=== PATIENT | male | born 1930 | race Caucasian/White ===

== ENCOUNTER 2017-01-04 16:41 | Outpatient (CLI) | payer OTHER | END 2017-01-04 20:07 | disposition home or self-care (01) | LOC: MLB 16:41 | PROVIDERS: ATTEND Legal Medicine | DX: Z00.8 Encounter for other general examination (principal) ==

== ENCOUNTER 2017-08-01 14:12 | Emergency (ER) | payer OTHER ==
[~2017-08-01] VITALS: Ht 177.8 cm; Wt 77.1 kg
[2017-08-01 14:40] VITALS: BP 114/75
[2017-08-01] MEDS ORDERED: ONDANSETRON 4 MG ODT SL PRN (14:55)
[2017-08-01] MEDS ORDERED: methylPREDNISolone SS 125 MG in WATER STERILE 2 ML IM ONE (14:55)
--- NOTE | 2017-08-01 15:00 | NUR ---
87 M BIB DAUGHTER WITH C/O 10/10 CONSTANT RIGHT SHOULDER PAIN X 2 DAYS; PT STS HX OF PAIN IN RIGHT SHOULDER, WORSE LAST NIGHT; PT DENIES ANY RECENT INJURY; LIMITED ROM TO RIGHT SHOULDER; PT DENIES ANY CP, SOB, NUMBESS, OR TINGLING; PT IS AOX4, APPEARS ANXIOUS AND RESTLESS; RR ARE EVEN AND UNLABORED; NAD. ALL NEEDS MET AT THIS TIME.
[2017-08-01] MEDS ORDERED: KETOROLAC 60 MG/2 ML VIAL IM ONE (15:30)
--- NOTE | 2017-08-01 15:45 | NUR ---
PT REQUESTING TO SPEAK TO DOCTOR; PT REQUESTING TO "BE ADMITTED AND GETTING CORTISONE SHOTS"; ER MD GALLAGHER BY BEDSIDE EXPLAINING D/C INSTRUCTIONS AND PLAN OF CARE; PT VERBALIZED UNDERSTAND AND AGREE WITH PLAN OF CARE.
[2017-08-01 15:55] VITALS: BP 122/74
--- NOTE | 2017-08-01 15:55 | NUR ---
Patient discharged with v/s stable. Written and verbal after care instructions given and explained. Patient alert, oriented and verbalized understanding of instructions. Ambulatory with steady gait. All questions addressed prior to discharge. ID band removed. Patient advised to follow up with PMD. Rx of Cipro and Tramadol given. Patient educated on indication of medication including possible reaction and side effects. Opportunity to ask questions provided and answered.
== END 2017-08-01 15:55 | disposition home or self-care (01) ==
LOC: MED 14:12
DX: M25.511 Pain in right shoulder (principal); Z88.0 Allergy status to penicillin; Z95.0 Presence of cardiac pacemaker
CPT/HCPCS: 73030; 96372; 99284; J1885; J2930; Q0092; S0119

== ENCOUNTER 2017-10-13 14:44 | Inpatient (IN) | payer OTHER ==
[~2017-10-13] VITALS: Ht 160 cm; Wt 71.2 kg
[2017-10-13 15:40] VITALS: BP 140/58
--- NOTE | 2017-10-13 16:25 | NUR ---
Pt taken to bed 3 via w/c.
[2017-10-13] MEDS ORDERED: NACL 0.9% 1,000 ML IV ONE ×2 (16:30→18:20)
[2017-10-13] MEDS ORDERED: ONDANSETRON 4 MG/2 ML VIAL IVP ONE (16:30)
--- NOTE | 2017-10-13 16:30 | NUR ---
patient brougnt in by for c/o n/v/d x 5 days. patient states " I don't have an appetite." patient states episode of vomiting x 1 this afternoon and diarrhea x 1. no observations of vomiting during assessment. patient's abdomen is soft, non-tender. bs present in all four quadrants. awaiting md evaluation. patient informed of neede urine specimen. presently at bedsidee.
--- NOTE | 2017-10-13 17:05 | NUR ---
Lab at bedside.
[2017-10-13 17:27] LABS: BASOPHILS # (AUTO) 0.1 K/uL (0.00-0.22); BASOPHILS % (AUTO) 1.5 % (0.0-2.0); EOSINOPHILS # (AUTO) 0.1 K/uL (0-0.4); EOSINOPHILS % (AUTO) 2.3 % (0.0-4.0); HEMATOCRIT 23.2 % (36-52); HEMOGLOBIN 7.5 g/dL (12.0-18.0); LYMPHOCYTES # (AUTO) 0.7 K/uL (2.0-11.5); LYMPHOCYTES % (AUTO) 14.8 % (20.5-51.1); MEAN CORPUSCULAR HEMOGLOBIN 30 pg (27-31); MEAN CORPUSCULAR HGB CONC 32 g/dL (33-37); MEAN CORPUSCULAR VOLUME 93 fL (80-94); MONOCYTES # (AUTO) 0.4 K/uL (0.8-1.0); MONOCYTES % (AUTO) 8.5 % (1.7-9.3); NEUTROPHILS # (AUTO) 3.3 K/uL (1.8-7.7); NEUTROPHILS % (AUTO) 72.9 % (42.2-75.2); PLATELET COUNT (AUTO) 175 K/uL (140-450); RED CELL DISTRIBUTION WIDTH 16.1 % (11.6-13.7); WHITE BLOOD COUNT (AUTO) 4.6 K/uL (4.8-10.8)
--- NOTE | 2017-10-13 17:30 | NUR ---
Dr. Cole in room for examination.
[2017-10-13 17:33] LABS: ALBUMIN 2.9 g/dL (3.4-5.0); AMYLASE 79 U/L (25-115); ANION GAP 19.6 (8-16); ASPARTATE AMINOTRANSFERASE 15 U/L (15-37); CARBON DIOXIDE 18.1 mmol/L (21-32); CHLORIDE 102 mmol/L (98-107); GLUCOSE 91 mg/dL (74-106); LIPASE 218 U/L (73-393); POTASSIUM 4.7 mmol/L (3.5-5.1); SODIUM SERUM 135 mmol/L (136-145); TOTAL BILIRUBIN 0.3 mg/dL (0.0-1.0)
[2017-10-13 17:35] LABS: PROTHROMBIN TIME 11.5 secs (10.8-13.4)
[2017-10-13 17:42] LABS: CREATININE 9.4 mg/dL (0.7-1.3); UREA NITROGEN, BLOOD 71 mg/dL (7-18)
[2017-10-13] MEDS ORDERED: ASPIRIN 325 MG TAB PO ONE (17:55)
--- NOTE | 2017-10-13 18:10 | NUR ---
patient out to ct via [facility]
[2017-10-13 19:18] VITALS: BP 134/57
--- NOTE | 2017-10-13 19:18 | NUR ---
ADMITTED A N 87M FROM ER. CAME BY [facility] ACCOMPANIED BY DAUGHTER. REPORT GIVEN BY ER NURSE. ON TELE MONITOR- PACED. AWAKE, ALERT AND ORIENTED X4. AMBULATORY WITH CANE AND STANDBY ASSISTANCE. HAS IVF INFUSING WELL ON THE RT AC #20. CLEAR AND PATENT. PT/FAMILY ORIENTED TO HOSPITAL ROUTINES. CALL LIGHT PLACED WITHIN EASY REACH. BED ON LOW POSITION, FREQUENT ROUNDS NEEDED. BED ALARM ON FOR PROTECTION. LT BUTTOCKS WITH REDNESS, NO DRAIN ,OPEN TO AIR. PT REFUSED TO REMOVE HIS UNDERWEAR. [employer] [place] ST[employer] . HEARING AID NOT PRESENT . DAUGHTER SAID HE DIDN'T HAVE IT AT THIS TIME. WILL FOLLOW UP WITH ADMITTING ORDERS.
--- NOTE | 2017-10-13 19:30 | NUR ---
patient was transferred to telemetry room 107a, stable upon transfer. report given to Josefina MASTERS. all belongings were accompanied upon transfer. Daughter present.
--- NOTE | 2017-10-13 21:30 | NUR ---
CALLED DR. OSMEL Fay CALLED BACK AND MADE AWARE THE NEED FOR ADMIT ORDERS. HE SAID HE IS GOING TO DO THE ORDERS.
[2017-10-13 21:53] LABS: APPEARANCE,URINE CLEAR (CLEAR); BILIRUBIN,URINE NEGATIVE (NEGATIVE); BLOOD, URINE 1+ (NEGATIVE); COLOR,URINE YELLOW (YELLOW); LEUKOCYTE ESTERASE ,URINE NEGATIVE (NEGATIVE); NITRITE, URINE NEGATIVE (NEGATIVE); UGLUCOSE NEGATIVE (NEGATIVE)
[2017-10-13] MEDS ORDERED: ACETAMINOPHEN 325 MG TAB PO PRN (22:00)
[2017-10-13] MEDS ORDERED: HYDROcodone/APAP 5/325 MG 1 TAB TAB PO PRN (22:00)
[2017-10-13] MEDS ORDERED: ONDANSETRON 4 MG/2 ML VIAL IVP PRN (22:00)
[2017-10-13] MEDS ORDERED: INSULIN LISPRO SLIDING SCALE 100 UNITS/ML VIAL SUBQ PRN (22:00)
[2017-10-13] MEDS: DEXT 5% /NACL 0.9% 1,000 ML IV SCH (22:00)
[2017-10-13] MEDS ORDERED: DEXTROSE 50% 50 ML SYR IVP PRN (22:00)
[2017-10-13] MEDS ORDERED: MORPHINE SULFATE 4 MG/ML SYR IVP PRN (22:00)
[2017-10-13] MEDS ORDERED: LORazepam 2 MG/ML VIAL IVP PRN (22:00)
[2017-10-13 22:08] LABS: HYALINE CASTS, URINE 0-10 /LPF (None Seen); RBC,URINE 0-5 (RARE) /HPF (0-5); URINE AMORPHOUS URATE 3+ /HPF (None Seen); WBC,URINE 0-5 (RARE) /HPF (0-5)
[2017-10-13] MEDS ORDERED: INFLUENZA VIRUS VACCINE QUAD 0.5 ML SYR IMVAC PRN (22:30)
--- NOTE | 2017-10-14 00:12 | NUR ---
SCD MACHINE APPLIED TO BOTH LOWER LEG ORDERED. PT MADE AWARE OF THE BENEFIT OF THE MACHINE.
[2017-10-14] MEDS: DEXT 5% /NACL 0.9% 1,000 ML IV SCH ×2 (00:40→18:17)
[2017-10-14 00:45] VITALS: BP 145/59
[2017-10-14 01:41] LABS: CREATINE KINASE MB 1.7 ng/mL (0-3.6)
--- NOTE | 2017-10-14 01:56 | NUR ---
PAGED Dena OLIVARES. FOR THE TROPONIN 0.[address] ABDOMEN /PELVIS. WILL WAIT FOR CALL BACK.
--- NOTE | 2017-10-14 02:16 | NUR ---
DR. OSMEL Fay CALLED BACK AND MADE AWARE ALSO OF THE CT ABDOMEN /PELVIS WITHOUT CONTRAST. WITH ORDER TO REPEAT CT ABD /PELVIS BUT WITH CONTRAST .
--- NOTE | 2017-10-14 02:20 | NUR ---
DR. OSMEL PINEDA CALLED BACK AND MADE AWARE OF THE TROP 0.170 .HE SAID TO CALL BUTTONHOLE MAKER HAND. SO DR. OSMEL CARBAJAL WAS PAGED . JUST CALLED BACK AND MADE AWARE OF THIS ELEVATED TROPONIN. NO ORDER MADE . HE SAID HE WILL SEE PT TODAY.
--- NOTE | 2017-10-14 03:00 | NUR ---
ABLE TO TALKED TP DIETETICS TEACHER, CAN'T DO THE CT WITH CONTRAST DUE TO ELEVATED CREATENINE
--- NOTE | 2017-10-14 03:49 | NUR ---
WILL HAVE MD AWARE ABOUT THE CT WITH CONTRAST ORDER THAT CAN'T BE DONE YET .
[2017-10-14 04:20] VITALS: BP 148/59
--- NOTE | 2017-10-14 04:30 | NUR ---
PT USED URINAL DURING THE NIGHT. VOIDED X 3. ABLE TO CLEAN THE PERINEAL AREA. WITH TINY AMOUNT OF STOOL. LT BUTTOCK WITH SMALL REDNESS , OPEN PRESSURE ULCER ,CLEANED WITH MILD SOAP AND WATER ,PAT DRY THEN COVER WITH DRESSING. WILL HAVE MD ORDER TREATMENT.
[2017-10-14] MEDS ORDERED: MILD SOAP AND WATER TP PRN (04:55)
[2017-10-14] MEDS ORDERED: HYDRAGUARD CREAM TP PRN (04:55)
[2017-10-14] MEDS: BLOOD GLUCOSE MONITORING 1 DEV DEV FS SCH ×4 (05:55→20:23)
--- NOTE | 2017-10-14 06:08 | NUR ---
FOLLOW UP US KIDNEY FROM CT DEPT. [place] SAID IT WILL BE DONE BY [phone] .
--- NOTE | 2017-10-14 06:09 | NUR ---
BLOOD SUGAR WAS CHECKED PER ORDER, RESULT 83, NO INSULIN NEEDED.
--- NOTE | 2017-10-14 06:45 | NUR ---
TALKED TO JALEN THOMASONNOKAYLA FOR CT ABDOMEN /PELVIS WITH CONTRAST. PT SIGNED CONSENT. WILL KEEP NPO .
--- NOTE | 2017-10-14 07:25 | NUR ---
ENDORSED PT IN STABLE CONDITION TO AM NURSE.
--- NOTE | 2017-10-14 07:26 | NUR ---
RECEIVED REPORT FROM BELLY DUMP DRIVER RN. PATIENT IS AAOX4, NO SIGNS AND SYMPTOMS OF ACUTE DISTRESS NOTED AT THIS TIME. PATIENT HAS IV RIGHT AC 20G, ON SALINE LOCK, ALSO HAS IV TO RIGHT FOREARM 20G INFUSING D5NS AT 100ML/HR. SITES ARE CLEAN, DRY, PATENT AND INTACT. DISCUSSED PLAN OF CARE WITH PATIENT AND HE VERBALIZED UNDERSTANDING. BED IN LOWEST POSITION, SIDE RAILS UP X2, ASSISTIVE DEVICE CANE AT THE FOOT OF THE BED, CALL LIGHT WITHIN REACH. WILL CONTINUE TO MONITOR.
[2017-10-14 07:31] LABS: BASOPHILS # (AUTO) 0.1 K/uL (0.00-0.22); BASOPHILS % (AUTO) 3.4 % (0.0-2.0); EOSINOPHILS # (AUTO) 0.2 K/uL (0-0.4); EOSINOPHILS % (AUTO) 4.9 % (0.0-4.0); HEMATOCRIT 21.1 % (36-52); LYMPHOCYTES # (AUTO) 1.1 K/uL (2.0-11.5); MEAN CORPUSCULAR HEMOGLOBIN 31 pg (27-31); MEAN CORPUSCULAR HGB CONC 33 g/dL (33-37); MEAN CORPUSCULAR VOLUME 92 fL (80-94); MONOCYTES # (AUTO) 0.5 K/uL (0.8-1.0); MONOCYTES % (AUTO) 10.6 % (1.7-9.3); NEUTROPHILS # (AUTO) 2.5 K/uL (1.8-7.7); NEUTROPHILS % (AUTO) 56.1 % (42.2-75.2); PLATELET COUNT (AUTO) 145 K/uL (140-450); RED BLOOD CELL COUNT(AUTO) 2.29 MIL/uL (4.20-6.10); RED CELL DISTRIBUTION WIDTH 15.7 % (11.6-13.7); WHITE BLOOD COUNT (AUTO) 4.4 K/uL (4.8-10.8)
[2017-10-14 08:00] VITALS: BP 147/54
[2017-10-14 08:45] LABS: MAGNESIUM 1.8 mg/dL (1.8-2.4); PHOSPHORUS 5.5 mg/dL (2.5-4.9)
[2017-10-14 08:49] LABS: ANION GAP 16.7 (8-16); CARBON DIOXIDE 18.8 mmol/L (21-32); CHLORIDE 106 mmol/L (98-107); GLUCOSE 82 mg/dL (74-106); POTASSIUM 4.5 mmol/L (3.5-5.1); SODIUM SERUM 137 mmol/L (136-145)
--- NOTE | 2017-10-14 09:10 | NUR ---
COLLECTED FECAL OCCULT AND SENT IT TO THE LAB.
--- NOTE | 2017-10-14 09:16 | NUR ---
PATIENT HAS BEEN SCREENED AND CATEGORIZED HIGH NUTRITION RISK. PATIENT WILL BE SEEN WITHIN 1-2 DAYS OF ADMISSION. 10/13/18-10/14/[address]
[2017-10-14 09:34] LABS: CREATININE 8.7 mg/dL (0.7-1.3); UREA NITROGEN, BLOOD 69 mg/dL (7-18)
[2017-10-14 12:00] VITALS: BP 142/64
--- NOTE | 2017-10-14 12:00 | NUR ---
DR COBB ORDERED LAZO CATHETER. SON REFUSED, STATING THAT HIS FATHER HAD YANKED OUT HIS OWN LAZO CATHETER 2 MONTHS AGO WHILE HOSPITALIZED AND THAT HE WAS BLEEDING FROM THE [place] AND IT CAUSED AN INFECTION. PATIENT HAS HX OF BPH WELL.
--- NOTE | 2017-10-14 12:05 | NUR ---
BEGAN BLOOD TRANSFUSION. EDUCATED PATIENT AND SON ABOUT SIGNS AND SYMPTOMS TO BE AWARE OF WHILE RECEIVING TRANSFUSION. BOTH VERBALIZED UNDERSTANDING.
--- NOTE | 2017-10-14 12:30 | NUR ---
PATIENTS BLOOD SUGAR 73. GAVE PATIENT SOME CRANBERRY JUICE. WILL RECHECK BLOOD SUGAR.
--- NOTE | 2017-10-14 13:00 | NUR ---
RECHECKED PATIENT BLOOD SUGAR AND IT WAS 86. HAS NO SIGNS AND SYMPTOMS OF ACUTE DISTRESS NOTED AT THIS TIME. WILL CONTINUE TO MONITOR.
[2017-10-14] MEDS: HYDRAGUARD CREAM TP SCH (13:36)
[2017-10-14] MEDS: MILD SOAP AND WATER TP SCH (13:37)
--- NOTE | 2017-10-14 14:49 | NUR ---
CM NOTE INITIAL REVIEW FOR CRITERIA DONE
--- NOTE | 2017-10-14 15:51 | NUR ---
10/14/2017 RD INITIAL ASSESSMENT COMPLETED PLEASE REFER TO NUTRITION ASSESSMENT UNDER CARE ACTIVITY FOR ESTIMATED NUTRITIONAL NEEDS. CONTINUE ANTIHYPERGLYCEMIC MEDS AND CARDIAC/60 GM CCHO DIET FOR GLUCOSE CONTROL IF PT EXPECTED TO BE NPO >5 DAYS, MAY CONSIDER PARENTERAL NUTRITION SUPPORT RD TO FOLLOW-UP IN 2-3 DAYS PATIENT IS HIGH RISK. ANGELA HOUSTON, RD
[2017-10-14 15:55] LABS: CREATINE KINASE MB 1.7 ng/mL (0-3.6)
[2017-10-14 16:00] VITALS: BP 141/58
[2017-10-14 18:36] LABS: ANION GAP 15.8 (8-16); CARBON DIOXIDE 17.5 mmol/L (21-32); CHLORIDE 108 mmol/L (98-107); GLUCOSE 99 mg/dL (74-106); POTASSIUM 4.3 mmol/L (3.5-5.1); SODIUM SERUM 137 mmol/L (136-145)
[2017-10-14 18:38] LABS: CREATININE 8.5 mg/dL (0.7-1.3); UREA NITROGEN, BLOOD 70 mg/dL (7-18)
--- NOTE | 2017-10-14 19:29 | NUR ---
ENDORSED PATIENT TO VENDING ROUTE DRIVER RN FOR CONTINUITY OF CARE. PATIENT IN STABLE CONDITION.
--- NOTE | 2017-10-14 19:30 | NUR ---
RECEIVED HANDOFF REPORT FROM AM RN. PATIENT A&OX4. PATIENT RESTING IN BED WITH DAUGHTER AT BEDSIDE. PATIENT DENIES PAIN. PATIENT DENIES CP, SOB. NO SIGNS OF ACUTE DISTRESS NOTED. IV SITE PATENT AND INTACT. SAFETY MEASURES ENSURED. CALL LIGHT WITHIN REACH.
[2017-10-14 20:00] VITALS: BP 148/59
[2017-10-14] MEDS ORDERED: SODIUM BICARBONATE 650 MG TAB PO SCH (21:00)
[2017-10-14] MEDS ORDERED: NACL 0.45% 1,000 ML IV SCH (23:50)
[2017-10-14] MEDS ORDERED: SODIUM BICARBONATE 8.4% PFS 50 MEQ/50 ML SYR IVP ONE (23:50)
[2017-10-15] VITALS: BP 146/49
[2017-10-15] MEDS: SODIUM BICARBONATE 8.4% 75 MEQ in NACL 0.45% 1,000 ML IV SCH ×2 (00:40→14:22)
[2017-10-15] MEDS: MILD SOAP AND WATER TP SCH ×2 (00:41→14:44)
[2017-10-15] MEDS: HYDRAGUARD CREAM TP SCH ×2 (00:41→14:44)
[2017-10-15 04:00] VITALS: BP 146/59
[2017-10-15] MEDS: BLOOD GLUCOSE MONITORING 1 DEV DEV FS SCH ×4 (06:49→21:00)
[2017-10-15 07:24] LABS: BASOPHILS # (AUTO) 0.1 K/uL (0.00-0.22); BASOPHILS % (AUTO) 1.4 % (0.0-2.0); EOSINOPHILS # (AUTO) 0.3 K/uL (0-0.4); EOSINOPHILS % (AUTO) 5.9 % (0.0-4.0); HEMATOCRIT 23.4 % (36-52); HEMOGLOBIN 7.7 g/dL (12.0-18.0); LYMPHOCYTES # (AUTO) 1.6 K/uL (2.0-11.5); LYMPHOCYTES % (AUTO) 33.2 % (20.5-51.1); MEAN CORPUSCULAR HEMOGLOBIN 30 pg (27-31); MEAN CORPUSCULAR HGB CONC 33 g/dL (33-37); MEAN CORPUSCULAR VOLUME 92 fL (80-94); MONOCYTES # (AUTO) 0.5 K/uL (0.8-1.0); NEUTROPHILS # (AUTO) 2.4 K/uL (1.8-7.7); NEUTROPHILS % (AUTO) 49.5 % (42.2-75.2); PLATELET COUNT (AUTO) 137 K/uL (140-450); RED BLOOD CELL COUNT(AUTO) 2.54 MIL/uL (4.20-6.10); WHITE BLOOD COUNT (AUTO) 4.9 K/uL (4.8-10.8)
--- NOTE | 2017-10-15 07:37 | NUR ---
ENDORSED PLAN OF CARE TO AM RN. PATIENT IN STABLE CONDITION.
--- NOTE | 2017-10-15 07:38 | NUR ---
REPORT ENDORSED FROM NURSES AIDE NURSE AT BEDSIDE FOR CONTINUITY OF CARE. PT IN BED WITH EYES CLOSED . IV SITE TO RFA 20G. RESP EVEN AND UNLABORED. NO ACUTE DISTRESS NOTED. CALL LIGHT WITHIN REACH. WILL CONT TO MONITOR PT.
--- NOTE | 2017-10-15 07:45 | NUR ---
DR BOLIVAR IN TO SEE PT THIS AM.
[2017-10-15 07:53] LABS: ANION GAP 18.3 (8-16); CHLORIDE 109 mmol/L (98-107); GLUCOSE 78 mg/dL (74-106); POTASSIUM 4.3 mmol/L (3.5-5.1); SODIUM SERUM 140 mmol/L (136-145)
[2017-10-15 07:56] LABS: MAGNESIUM 1.8 mg/dL (1.8-2.4); PHOSPHORUS 5.4 mg/dL (2.5-4.9)
[2017-10-15 07:58] LABS: CREATININE 8.5 mg/dL (0.7-1.3); UREA NITROGEN, BLOOD 66 mg/dL (7-18)
[2017-10-15 08:00] VITALS: BP 142/50
--- NOTE | 2017-10-15 08:02 | NUR ---
CRITICAL VALUE REPORTED OF BUN 66 AND CREATININE OF 8.5. IT WAS PREVIOUSLY BUN 70 AND CREATININE 8.5.
--- NOTE | 2017-10-15 09:45 | NUR ---
PATIENT IN BED WITH EYES CLOSED. RESP EVEN AND UNLABORED. NO ACUTE DISTRESS NOTED. CALL LIGHT WITHIN REACH. WILL CONT TO MONITOR PT.
--- NOTE | 2017-10-15 11:30 | NUR ---
PATIENT SITTING IN BED COMFORTABLY. PATIENT'S FAMILY MEMBERS AT BEDSIDE. ANSWERED ALL OF SON'S QUESTIONS REGARDING PATIENT'S UPDATE ON STATUS. SAFETY MEASURES IN PLACE, CALL LIGHT WITHIN REACH. WILL CONTINUE TO MONITOR.
--- NOTE | 2017-10-15 11:45 | NUR ---
PATIENT ASSISTED TO RESTROOM. PT HAD BM . AMBULATED WITH CANE. STEADY GAIT WITH AMBULATION DEVICE. FAMILY AT BEDSIDE. BLOOD GLUCOSE CHECKED. VS COLLECTED. PATIENT ALERT AND ABLE TO VERBALIZE NEEDS. NO ACUTE DISTRESS NOTED. CALL LIGHT WITHIN REACH. BED IN LOW POSITION. WILL CONT TO MONITOR PT.
[2017-10-15 12:00] VITALS: BP 152/52
--- NOTE | 2017-10-15 12:09 | NUR ---
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 INITIATED MRSA PROTOCOL. PATIENT ON CONTACT ISOLATION. WILL CONT TO MONITOR PT.
[2017-10-15] MEDS: SODIUM BICARBONATE 650 MG TAB PO SCH ×2 (12:18→17:24)
--- NOTE | 2017-10-15 13:45 | NUR ---
PT IN BED WITH EYES CLOSED. EASILY AWOKEN. RESP EVEN AND UNLABORED. NO ACUTE DISTRESS NOTED.BED IN LOW POSITION.CALL LIGHT WITHIN REACH. WILL CONT TO MONITOR PT.
[2017-10-15] MEDS: CHLORHEXADINE GLUC 2% CLOTH TP SCH (14:00)
[2017-10-15] MEDS: MUPIROCIN 2% OINT 22 GM TUBE TP SCH (14:00)
--- NOTE | 2017-10-15 15:45 | NUR ---
PATIENT RESTING IN BED WITH EYES CLOSED. NO ACUTE DISTRESS. EASILY WOKEN. NO C/O PAIN OR DISCOMFORT.CALL LIGHT WITHIN REACH. WILL CONT TO MONITOR PT.
--- NOTE | 2017-10-15 17:45 | NUR ---
PATIENT ASSISTED TO RESTROOM ATTEMPTED TO HAVE BM. NO BM. DC RFA IV D/T INFILTRATION. ROTATED IVF TO RAC. PATIENT TOLERATED WELL. NO ACUTE DISTRESS NOTED. CALL LIGHT WITHIN REACH. WILL CONT TO MONITOR PT.
[2017-10-15 18:00] VITALS: BP 132/40
--- NOTE | 2017-10-15 19:21 | NUR ---
ENDORSED REPORT TO BOTTOM STEEP TENDER NURSE AT BEDSIDE FOR CONTINUITY OF CARE.
--- NOTE | 2017-10-15 19:22 | NUR ---
RECEIVED HANDOFF REPORT FROM AM RN. PATIENT A&OX4. PATIENT DENIES PAIN. IV SITE PATENT AND INTACT. DAUGHTER AT BEDSIDE. NO SIGNS OR SYMPTOMS OF ACUTE DISTRESS NOTED. SAFETY MEASURES ENSURED. CALL LIGHT WITHIN REACH. WILL CONTINUE TO MONITOR.
[2017-10-15 20:00] VITALS: BP 153/57
[2017-10-16] VITALS: BP 138/57
[2017-10-16] MEDS: MILD SOAP AND WATER TP SCH ×2 (01:07→13:35)
[2017-10-16] MEDS: HYDRAGUARD CREAM TP SCH ×2 (01:07→13:35)
[2017-10-16 04:00] VITALS: BP 141/55
[2017-10-16] MEDS: SODIUM BICARBONATE 8.4% 75 MEQ in NACL 0.45% 1,000 ML IV SCH ×2 (04:42→19:11)
[2017-10-16] MEDS: BLOOD GLUCOSE MONITORING 1 DEV DEV FS SCH ×4 (06:24→20:23)
[2017-10-16 07:09] LABS: BASOPHILS # (AUTO) 0.2 K/uL (0.00-0.22); EOSINOPHILS # (AUTO) 0.4 K/uL (0-0.4); EOSINOPHILS % (AUTO) 6.8 % (0.0-4.0); HEMATOCRIT 26.5 % (36-52); HEMOGLOBIN 8.6 g/dL (12.0-18.0); LYMPHOCYTES # (AUTO) 1.6 K/uL (2.0-11.5); LYMPHOCYTES % (AUTO) 30.3 % (20.5-51.1); MEAN CORPUSCULAR HEMOGLOBIN 30 pg (27-31); MEAN CORPUSCULAR HGB CONC 32 g/dL (33-37); MEAN CORPUSCULAR VOLUME 92 fL (80-94); MONOCYTES # (AUTO) 0.4 K/uL (0.8-1.0); MONOCYTES % (AUTO) 8.2 % (1.7-9.3); NEUTROPHILS # (AUTO) 2.8 K/uL (1.8-7.7); NEUTROPHILS % (AUTO) 51.7 % (42.2-75.2); PLATELET COUNT (AUTO) 142 K/uL (140-450); RED BLOOD CELL COUNT(AUTO) 2.86 MIL/uL (4.20-6.10); RED CELL DISTRIBUTION WIDTH 15.3 % (11.6-13.7); WHITE BLOOD COUNT (AUTO) 5.4 K/uL (4.8-10.8)
[2017-10-16 07:25] LABS: MAGNESIUM 1.7 mg/dL (1.8-2.4); PHOSPHORUS 5.6 mg/dL (2.5-4.9)
[2017-10-16 07:27] LABS: ANION GAP 16.5 (8-16); CARBON DIOXIDE 19.4 mmol/L (21-32); CHLORIDE 107 mmol/L (98-107); GLUCOSE 82 mg/dL (74-106); POTASSIUM 3.9 mmol/L (3.5-5.1); SODIUM SERUM 139 mmol/L (136-145)
--- NOTE | 2017-10-16 07:37 | NUR ---
ENDORSED PLAN OF CARE TO AM RN. PATIENT IN STABLE CONDITION.
--- NOTE | 2017-10-16 07:38 | NUR ---
RECEIVED REPORT FROM MAINTENANCE SPECIALIST NURSE. PATIENT LYING IN BED SLEEPING, AROUSABLE BY VOICE. NO DISTRESS NOTED. RESPIRATIONS EVEN, UNLABORED, ON ROOM AIR. DENIES ANY PAIN AT THIS TIME. PATIENT VERBALIZES WANTING TO SWITCH NURSES, DOES NOT WANT ME HIS NURSE. WILL NOTIFY FORENSIC ECONOMIST.
[2017-10-16 08:00] VITALS: BP 148/55
--- NOTE | 2017-10-16 08:00 | NUR ---
ENDORSED PATIENT TO GUERRERO CASAREZ FOR CONTINUITY OF CARE. PATIENT IN STABLE CONDITION.
--- NOTE | 2017-10-16 08:01 | NUR ---
RECEIVED REPORT FROM GABBIE AT BEDSIDE FOR CONTINUITY OF CARE. PATIENT ALERT AND ABLE TO MAKE NEEDS KNOWN. NO ACUTE DISTRESS NOTED. NO C/O PAIN OR DISCOMFORT. RESP EVEN AND UNLABORED. PATIENT USES URINAL AT BEDSIDE. PT [place] SPEAK[place]. PT WITH RAC IV 20G WITH NS WITH SODIUM BICARB 75MEG RUNNING AT 75ML/HR. TOLERATING WELL. PT FALL RISK WITH STEADY GAIT WITH CANE. CALL LIGHT WITHIN REACH. WILL CONT TO MONITOR PT.
[2017-10-16 08:07] LABS: CREATININE 8.5 mg/dL (0.7-1.3)
[2017-10-16] MEDS: SODIUM BICARBONATE 650 MG TAB PO SCH ×3 (08:42→17:10)
--- NOTE | 2017-10-16 08:42 | NUR ---
ADMINISTERED SCHEDULED MORNING MEDICATION PER MD ORDER. PATIENT TOLERATED WELL. PT ALERT AND ABLE TO VERBALIZE NEEDS. NO ACUTE DISTRESS NOTED. CALL LIGHT WITHIN REACH. SON AT BEDSIDE. CALL LIGHT WITHIN REACH.CONTACT PRECAUTIONS. WILL CONT TO MONITOR PT.
[2017-10-16] MEDS ORDERED: MAG SULF 2000 MG/WATER PREMIX 50 ML IV SCH (09:00)
--- NOTE | 2017-10-16 09:42 | NUR ---
PT WITH NEW ORDER FOR MAG RIDER 2GM. ADMINISTERED VIA IVPB TO RAC 20G. PATIENT IN BED AWAKE AND ALERT . ABLE TO MAKE NEEDS KNOWN. USED URINAL AND BLADDER SCANNED. 27ML PVR. CALL LIGHT WITHIN REACH. WILL CONT TO MONITOR PT. PT CONT ON CONTACT ISOLATION.
--- NOTE | 2017-10-16 11:46 | NUR ---
DR CLAROS (NEPHRO) IN TO SEE PATIENT.
[2017-10-16 12:00] VITALS: BP 157/59
[2017-10-16] MEDS: CALCIUM ACETATE 667 MG TAB PO SCH ×2 (12:10→17:10)
--- NOTE | 2017-10-16 12:30 | NUR ---
DR BOLIVAR IN TO SEE PATIENT. PT ALERT AND ABLE TO VERBALIZE NEEDS. NO ACUTE DISTRESS NOTED. NO C/O PAIN. WILL CONT TO MONITOR.
[2017-10-16 13:32] LABS: PHOSPHORUS 5.8 mg/dL (2.5-4.9)
[2017-10-16] MEDS: CHLORHEXADINE GLUC 2% CLOTH TP SCH (13:35)
[2017-10-16] MEDS: MUPIROCIN 2% OINT 22 GM TUBE TP SCH (13:35)
[2017-10-16 13:42] LABS: UREA NITROGEN, BLOOD 66 mg/dL (7-18)
--- NOTE | 2017-10-16 14:00 | NUR ---
DR HOFFMAN IN TO SEE PATIENT.
--- NOTE | 2017-10-16 14:16 | NUR ---
PT ALERT AND ABLE TO MAKE NEEDS KNOWN. NO ACUTE DISTRESS NOTED. NO C/O PAIN OR DISCOMFORT. PATIENT USES URINAL AT BEDSIDE. PT WITH RAC IV 20G WITH NS WITH SODIUM BICARB 75MEG RUNNING AT 75ML/HR. TOLERATING WELL. PT FALL RISK. CONT ON CONTACT PRECAUTIONS. CALL LIGHT WITHIN REACH. WILL CONT TO MONITOR PT.
--- NOTE | 2017-10-16 14:30 | NUR ---
NOTIFIED DR SHAD VALERO THAT DR HOFFMAN WILL CONTINUE TO SEE PATIENT PER PATIENT AND FAMILY REQUEST
[2017-10-16 16:00] VITALS: BP 162/63
--- NOTE | 2017-10-16 16:30 | NUR ---
PATIENT ALERT AND ABLE TO VERBALIZE NEEDS. NO ACUTE DISTRESS NOTED. NO C/O PAIN OR DISCOMFORT. ASSISTED PT TO BATHROOM BECAUSE HE FELT THE URGE TO HAVE A BM. BUT WAS UNSUCCESSFUL. HAT FOR SPECIMEN COLLECTION IN BATHROOM TOILET. PATIENT CONT ON CONTACT ISOLATION ORDERED. WILL CONT TO MONITOR PT.
--- NOTE | 2017-10-16 18:20 | NUR ---
IV SITE CHANGED FROM MEDIAL RAC. TO LATERAL RAC. PT TOLERATED WELL. 20G PATENT AND INTACT.CONTINUED IVF ORDERED. PATIENT ALERT AND ABLE TO VERBALIZE NEEDS. NO ACUTE DISTRESS . WILL CONT TO MONITOR PT.
--- NOTE | 2017-10-16 19:25 | NUR ---
ENDORSED REPORT TO BEHAVIORAL HEALTH COUNSELOR NURSE AT BEDSIDE FOR CONTINUITY OF CARE.
--- NOTE | 2017-10-16 19:26 | NUR ---
PATIENT REPORT RECEIVED FROM MORNING NURSE AT BEDSIDE. PATIENT IS ASLEEP IN BED, BUT EASY TO AROUSE. NO SIGNS AND SYMPTOMS OF DISTRESS NOTED. NO COMPLAINTS OF PAIN AT THIS TIME. IV SITE NOTED ON RIGHT AC, IVF INFUSING WELL. BED IN LOWEST POSITION, SIDE RAILS UP AND CALL LIGHT WITHIN REACH. WILL CONTINUE TO MONITOR.
[2017-10-16 20:00] VITALS: BP 159/63
[2017-10-16] MEDS: DOCUSATE SODIUM 100 MG GELCAP PO SCH (20:56)
[2017-10-16] MEDS: hydrALAZINE 25 MG TAB PO SCH (20:58)
--- NOTE | 2017-10-16 21:30 | NUR ---
MEDICATION EDUCATION GIVEN. PATIENT VERBALIZED UNDERSTANDING. MEDICATION GIVEN ORDERED. WILL CONTINUE TO MONITOR.
[2017-10-17] VITALS: BP 148/70
--- NOTE | 2017-10-17 | NUR ---
CHECKED ON PATIENT. PATIENT IS ASLEEP. NO SIGNS AND SYMPTOMS OF DISTRESS NOTED. BREATHING EVEN AND UNLABORED. WILL CONTINUE TO MONITOR.
[2017-10-17] MEDS: HYDRAGUARD CREAM TP SCH ×2 (01:00→13:13)
[2017-10-17] MEDS: MILD SOAP AND WATER TP SCH ×2 (01:18→13:13)
--- NOTE | 2017-10-17 02:00 | NUR ---
ASSISTED PATIENT TO AMBULATE TO RESTROOM USING HIS CANE. PATIENT HAD A BOWEL MOVEMENT. SAMPLE TAKEN. PERICARE DONE. ASSISTED PATIENT BACK TO BED. NO SIGNS AND SYMPTOMS OF DISTRESS NOTED. WILL CONTINUE TO MONITOR.
[2017-10-17 04:00] VITALS: BP 165/69
--- NOTE | 2017-10-17 04:00 | NUR ---
CHECKED ON PATIENT. PATIENT IS ASLEEP. NO SIGNS AND SYMPTOMS OF DISTRESS NOTED. BREATHING EVEN AND UNLABORED. WILL CONTINUE TO MONITOR.
[2017-10-17] MEDS: BLOOD GLUCOSE MONITORING 1 DEV DEV FS SCH ×4 (06:43→20:11)
[2017-10-17 07:08] LABS: BASOPHILS % (AUTO) 0.7 % (0.0-2.0); EOSINOPHILS # (AUTO) 0.4 K/uL (0-0.4); EOSINOPHILS % (AUTO) 6.9 % (0.0-4.0); HEMATOCRIT 25.8 % (36-52); HEMOGLOBIN 8.3 g/dL (12.0-18.0); LYMPHOCYTES # (AUTO) 1.8 K/uL (2.0-11.5); LYMPHOCYTES % (AUTO) 31.4 % (20.5-51.1); MEAN CORPUSCULAR HEMOGLOBIN 30 pg (27-31); MEAN CORPUSCULAR HGB CONC 32 g/dL (33-37); MEAN CORPUSCULAR VOLUME 92 fL (80-94); MONOCYTES # (AUTO) 0.3 K/uL (0.8-1.0); MONOCYTES % (AUTO) 4.9 % (1.7-9.3); NEUTROPHILS # (AUTO) 3.1 K/uL (1.8-7.7); NEUTROPHILS % (AUTO) 56.1 % (42.2-75.2); PLATELET COUNT (AUTO) 146 K/uL (140-450); RED BLOOD CELL COUNT(AUTO) 2.81 MIL/uL (4.20-6.10); RED CELL DISTRIBUTION WIDTH 15.6 % (11.6-13.7); WHITE BLOOD COUNT (AUTO) 5.6 K/uL (4.8-10.8)
[2017-10-17 07:16] LABS: ANION GAP 15.6 (8-16); CARBON DIOXIDE 22.8 mmol/L (21-32); CHLORIDE 105 mmol/L (98-107); GLUCOSE 85 mg/dL (74-106); POTASSIUM 4.4 mmol/L (3.5-5.1); SODIUM SERUM 139 mmol/L (136-145); UREA NITROGEN, BLOOD 60 mg/dL (7-18)
[2017-10-17 07:18] LABS: PHOSPHORUS 5.6 mg/dL (2.5-4.9)
--- NOTE | 2017-10-17 07:30 | NUR ---
RECEIVED PT AAOX3-4 WITH PERIODS OF FORGETFULNESS. NO SOB NOTED. NO C/O PAIN AT THIS TIME. IV TO RT AC PATENT AND INTACT, CHEST DIMINISHED AIR ENTRY TO THE BASES. ABDOMEN SOFT, BOWEL SOUNDS PRESENT. INSTRUCTED PT TO CALL FOR ASSISTANCE, CALL LIGHT WITHIN REACH, PT VERBALIZED UNDERSTANDING.
--- NOTE | 2017-10-17 07:30 | NUR ---
PATIENT REPORT GIVEN TO MORNING NURSE AT BEDSIDE. PATIENT IS IN STABLE CONDITION.
[2017-10-17 07:41] LABS: CREATININE 8.1 mg/dL (0.7-1.3)
[2017-10-17 08:00] VITALS: BP 118/61
[2017-10-17] MEDS: ALLOPURINOL 100 MG TAB PO SCH (09:00)
[2017-10-17] MEDS ORDERED: PSYLLIUM 12.2 GM/PKT PO SCH (09:00)
--- NOTE | 2017-10-17 09:00 | NUR ---
PT'S RECORDS FROM PSYCHIATRIC (FROM PREVIOUS HOSPITALIZATION) CAME THROUGH FAX, PLACED IN PT'S CHART. Soraya OLIVARES. IN TO SEE PT AND NOTIFIED THAT RECORDS ARE IN.
[2017-10-17] MEDS: TAMSULOSIN 0.4 MG CAP PO SCH (09:16)
[2017-10-17] MEDS: SODIUM BICARBONATE 650 MG TAB PO SCH ×3 (09:16→17:35)
[2017-10-17] MEDS: hydrALAZINE 25 MG TAB PO SCH ×2 (09:17→20:10)
[2017-10-17] MEDS: METOPROLOL SUCCINATE 50 MG TABER PO SCH (09:17)
[2017-10-17] MEDS: CALCIUM ACETATE 667 MG TAB PO SCH ×3 (09:17→17:35)
--- NOTE | 2017-10-17 10:56 | NUR ---
WOUND CARE EVALUATION NOTE: REASON FOR EVALUATION: PRESSURE ULCER LEFT BUTTOCK SKIN ASSESSMENT DONE ON THIS 87 Y/O MALE PATIENT FROM HOME TO [facility], WITH INITIAL DIAGNOSIS OF NAUSEA AND VOMITING. PAST MEDICAL HISTORY INCLUDE DIABETES, HTN,CAD, CKD AND HYPOTHYRODISM. ALL ABOVE INFORMATION WAS OBTAINED FROM THE ADMISSION H&P, PT AND SON. LABS ARE WBC 5.6, H/H 8.3/25.8, GLUCOSE 85 AND ALBUMIN 2.9. PATIENT IS AWAKE, ONLY WANTS THE BUTTOCKS AN D SACRALCOCCYX BEING ASSESS. SON AT BED SIDE ANDR REQUESTED NOT TO REMOVE THE SOCKS. SON EXPLAINED THE BUTTOCKS WOUND HAPPENED BECAUSE PT SAT IN FROMT OF COMPUTER TOO LONG. INITIAL PLAN OF CARE AND PRESSURE PREVENTIVE MEASURES DISCUSSED WITH PATIENT AND SON, ABLE TO VERBALIZE UNDERSTANDING. PRIMARY RN NOTIFY PLAN OF CARE INTEGUMENTARY: LEFT ISCHIUM PU ST II - 0.2X0.1X0.1CM 100% PALE RED. PW PINK. AREA DRY AND CLEAN RECOMMENDATIONS: -LEFT ISCHIUM PU CLEANSE WITH NS, PAT DRY, APPLY OPTIFORM AND COVER WITH COMPOSITE DRESSING CHANGE QOD AND PRN IF SOILING -KEEP SKIN DRY AND CLEAN AT ALL TIME -TURN AND REPOSITION PATIENT Q2H TO OFFLOAD SACRALCOCCYX AND BUTTOCKS, WITH THE EXCEPTION DURING MEALTIMES. -ASSESS AND MONITOR SKIN CONDITION DURING POSITION CHANGE, PLEASE PAY PARTICULAR ATTENTION TO LEFT ISCHIUM -OFFLOAD BILATERAL HEELS BY PLACING PILLOWS UNDER CALVES AT ALL TIMES, UNLESS OTHERWISE CONTRAINDICATED -KEEP SKIN CLEAN AND DRY AT ALL TIMES. -PRESSURE REDISTRIBUTION SURFACE THERAPY. -DECEMBER DISCHARGE WITH OPTIFORM AND COMPOSITE DRESSING SUPPLIES X 1 WEEK -SON AND PT WAS INSTRUCTED TO OBTAIN A GEL CUSHION AT HOME WHILE SITTING IN CHAIR WITH WEIGHT SHIFTING Q2H RECOMMENDATIONS DISCUSSED WITH PRIMARY RN WILL FOLLOW UP PATIENT Q7 DAYS AND PRN. PLEASE CONTACT [facility] FOR ANY CONCERNS, QUESTIONS AND CHANGES IN WOUND CONDITION.
[2017-10-17] MEDS ORDERED: FOAM DRESSING TP PRN (11:25)
[2017-10-17 12:00] VITALS: BP 103/55
[2017-10-17] MEDS: MUPIROCIN 2% OINT 22 GM TUBE TP SCH (13:13)
[2017-10-17] MEDS: SODIUM BICARBONATE 8.4% 75 MEQ in NACL 0.45% 1,000 ML IV SCH ×2 (13:13→23:42)
--- NOTE | 2017-10-17 13:41 | NUR ---
CM NOTE CONCURRENT REVIEW FOR CRITERIA DONE
[2017-10-17] MEDS: CHLORHEXADINE GLUC 2% CLOTH TP SCH (14:04)
--- NOTE | 2017-10-17 15:02 | NUR ---
10/17/17 RD FOLLOW UP COMPLETED. PLEASE REFER TO NUTRITION ASSESSMENT UNDER CARE ACTIVITY FOR ESTIMATED NUTRITIONAL NEEDS. CONTINUE ANTIHYPERGLYCEMIC MEDS AND CARDIAC/60 GM CCHO DIET FOR GLUCOSE CONTROL PT WILL RECEIVE DIABETIC HEALTH SHAKE TID FOR ADDITIONAL KCAL-PRO INTAKE. RD TO FOLLOW-UP IN 2-3 DAYS PATIENT IS HIGH RISK. ANGELA HOUSTON, RD
[2017-10-17] MEDS ORDERED: diphenhydrAMINE 50 MG/ML VIAL ONE (15:23)
[2017-10-17 15:45] VITALS: BP 160/60
--- NOTE | 2017-10-17 15:45 | NUR ---
PT WHEELED TO GI LAB BY TAMMI CABRERA IN STABLE CONDITION. EGD CONSENT SIGNED BY DAUGHTER KYLER EARLIER EXPLAINED BY DR. Lashon HERMAN, PT AND DAUGHTER VERBALIZED UNDERSTANDING.
--- NOTE | 2017-10-17 15:55 | NUR ---
DR. HOFFMAN HERE TO SEE MD SANAZ NOTIFIED THAT PT IS IN GI LAB FOR EGD.
[2017-10-17] MEDS: fentaNYL 0.05 MG/ML VIAL ONE ×2 (15:56→15:59)
[2017-10-17] MEDS: MIDAZOLAM 2 MG/2 ML VIAL ONE ×2 (15:56→16:01)
--- NOTE | 2017-10-17 16:20 | NUR ---
PT BACK FROM EGD IN STABLE CONDITION. AAO. NO SOB NOTED. NO COMPLAINTS MADE AT THIS TIME.
[2017-10-17] MEDS ORDERED: PANTOPRAZOLE 40 MG INJ VIAL IVP SCH (17:00)
--- NOTE | 2017-10-17 18:49 | NUR ---
PT AWAKE, TALKING TO FAMILY AT THE BEDSIDE. NO SOB NOTED. NO COMPLAINTS MADE AT THIS TIME. WILL ENDORSE TO NEXT SHIFT NURSE FOR CONTINUITY OF CARE.
--- NOTE | 2017-10-17 19:15 | NUR ---
RECEIVED HANDOFF REPORT FROM AM RN. PATIENT A&OX4. PATIENT DENIES PAIN. IV SITE PATENT AND INTACT. PATIENT RESTING COMFORTABLY IN BED. NO SIGNS OR SYMPTOMS OF ACUTE DISTRESS NOTED. SAFETY MEASURES ENSURED. CALL LIGHT WITHIN REACH. WILL CONTINUE TO MONITOR.
[2017-10-17 20:00] VITALS: BP 149/59
[2017-10-17] MEDS: SENNA 8.6 MG TAB PO SCH (20:09)
[2017-10-17] MEDS: DOCUSATE SODIUM 100 MG GELCAP PO SCH (20:09)
[2017-10-18] VITALS: BP 152/60
[2017-10-18] MEDS: MILD SOAP AND WATER TP SCH ×2 (01:15→13:02)
[2017-10-18] MEDS: HYDRAGUARD CREAM TP SCH ×2 (01:15→13:02)
--- NOTE | 2017-10-18 01:15 | NUR ---
PATIENT STATES SOB. O2 SAT IS 98 ON ROOM AIR. PATIENTS HOB IS IN HIGH POSITION. PATIENT DENIES CHEST PAIN. NO SIGNS OR SYMPTOMS OF ACUTE DISTRESS NOTED. SAFETY MEASURES ENSURED. PATIENT PLACED ON 1L O2 NC. O2 IS 99% CALL LIGHT WITHIN REACH. WILL CONTINUE TO MONITOR.
[2017-10-18 04:00] VITALS: BP 145/63
[2017-10-18] MEDS: BLOOD GLUCOSE MONITORING 1 DEV DEV FS SCH ×4 (06:18→20:15)
[2017-10-18 06:55] LABS: BASOPHILS # (AUTO) 0.2 K/uL (0.00-0.22); BASOPHILS % (AUTO) 3.1 % (0.0-2.0); EOSINOPHILS # (AUTO) 0.4 K/uL (0-0.4); EOSINOPHILS % (AUTO) 7.4 % (0.0-4.0); HEMATOCRIT 25.4 % (36-52); HEMOGLOBIN 8.2 g/dL (12.0-18.0); LYMPHOCYTES # (AUTO) 1.4 K/uL (2.0-11.5); LYMPHOCYTES % (AUTO) 28.7 % (20.5-51.1); MEAN CORPUSCULAR HEMOGLOBIN 30 pg (27-31); MEAN CORPUSCULAR HGB CONC 32 g/dL (33-37); MEAN CORPUSCULAR VOLUME 92 fL (80-94); MONOCYTES # (AUTO) 0.5 K/uL (0.8-1.0); NEUTROPHILS # (AUTO) 2.6 K/uL (1.8-7.7); NEUTROPHILS % (AUTO) 50.8 % (42.2-75.2); PLATELET COUNT (AUTO) 145 K/uL (140-450); RED BLOOD CELL COUNT(AUTO) 2.76 MIL/uL (4.20-6.10); RED CELL DISTRIBUTION WIDTH 15.4 % (11.6-13.7); WHITE BLOOD COUNT (AUTO) 5.1 K/uL (4.8-10.8)
--- NOTE | 2017-10-18 07:30 | NUR ---
RECEIVED PT AAOX3-4 WITH PERIODS OF FORGETFULNESS. NO SOB NOTED. NO C/O PAIN AT THIS TIME. IV TO RT AC PATENT AND INTACT, CHEST DIMINISHED AIR ENTRY TO THE BASES, ON 02 AT 1LITER PER MIN VIA NASAL CANNULA WITH 02 SATS OF 96%. ABDOMEN SOFT, BOWEL SOUNDS PRESENT. NO EDEMA NOTED. SCD'S IN PLACE. INSTRUCTED PT TO CALL FOR ASSISTANCE, CALL LIGHT WITHIN REACH, PT VERBALIZED UNDERSTANDING.
--- NOTE | 2017-10-18 07:38 | NUR ---
ENDORSED PLAN OF CARE TO AM RN. PATIENT IN STABLE CONDITION.
[2017-10-18 07:47] LABS: PHOSPHORUS 5.4 mg/dL (2.5-4.9)
[2017-10-18 07:52] LABS: SODIUM SERUM 139 mmol/L (136-145)
[2017-10-18 07:53] LABS: CARBON DIOXIDE 24.9 mmol/L (21-32); CHLORIDE 104 mmol/L (98-107); CREATININE 7.8 mg/dL (0.7-1.3); GLUCOSE 78 mg/dL (74-106); POTASSIUM 3.9 mmol/L (3.5-5.1); UREA NITROGEN, BLOOD 55 mg/dL (7-18)
[2017-10-18 08:00] VITALS: BP 140/54
[2017-10-18] MEDS: PANTOPRAZOLE 40 MG INJ VIAL IVP SCH (09:03)
[2017-10-18] MEDS: SODIUM BICARBONATE 650 MG TAB PO SCH ×3 (09:04→17:48)
[2017-10-18] MEDS: TAMSULOSIN 0.4 MG CAP PO SCH (09:04)
[2017-10-18] MEDS: SENNA 8.6 MG TAB PO SCH (09:04)
[2017-10-18] MEDS: ALLOPURINOL 100 MG TAB PO SCH (09:04)
[2017-10-18] MEDS: hydrALAZINE 25 MG TAB PO SCH ×2 (09:04→21:00)
[2017-10-18] MEDS: METOPROLOL SUCCINATE 50 MG TABER PO SCH (09:05)
[2017-10-18] MEDS: CALCIUM ACETATE 667 MG TAB PO SCH ×3 (09:05→17:48)
[2017-10-18] MEDS: SODIUM BICARBONATE 8.4% 75 MEQ in NACL 0.45% 1,000 ML IV SCH (09:17)
[2017-10-18 12:00] VITALS: BP 160/62
[2017-10-18] MEDS: MUPIROCIN 2% OINT 22 GM TUBE TP SCH (13:10)
[2017-10-18] MEDS: CHLORHEXADINE GLUC 2% CLOTH TP SCH (14:00)
--- NOTE | 2017-10-18 15:01 | NUR ---
PHYSICAL THERAPY CO-SIGN The Physical Therapy Progress Notes documented by Ekg Monitor have been reviewed. I concur with the documentation of this INCINERATOR OPERATOR. Plan: continue PT as per plan of care if he remains in this hospital. Reviewed/Co-Signed by: Nanette Yao, PT Documentation Done by: Alfred Burkett, INCINERATOR OPERATOR Addendum: 10/18/17 at 1503 by Nanette Yao PT Amended: Links added.
[2017-10-18 16:00] VITALS: BP 146/59
--- NOTE | 2017-10-18 17:00 | NUR ---
DR. HOFFMAN HERE TO SEE PT.
[2017-10-18] MEDS: DEXT 5% /NACL 0.9% 1,000 ML IV SCH (17:49)
--- NOTE | 2017-10-18 18:10 | NUR ---
PT SEEN BY DR. Lashon HERMAN WITH NEW ORDERS.
--- NOTE | 2017-10-18 19:20 | NUR ---
PT AWAKE. NO SOB NOTED. NO COMPLAINTS MADE. ENDORSED TO NEXT SHIFT NURSE FOR CONTINUITY OF CARE.
--- NOTE | 2017-10-18 19:21 | NUR ---
RECEIVED HANDOFF REPORT FROM AM RN. PATIENT A&OX4. PATIENT DENIES PAIN. IV SITE PATENT AND INTACT. PATIENT RESTING COMFORTABLE IN BED. NASAL CANNULA AT BEDSIDE BUT NOT IN USE. NO SIGNS OR SYMPTOMS OF ACUTE DISTRESS NOTED. CALL LIGHT WITHIN REACH. WILL CONTINUE TO MONITOR.
[2017-10-18 20:00] VITALS: BP 107/50
--- NOTE | 2017-10-18 20:30 | NUR ---
SON KATELIN IN TO SEE PATIENT. DISCUSSED PLAN OF CARE WITH SON. REQUESTED INFORMATION ON BUN AND CREATININE LEVELS SINCE ADMISSION, PROVIDED INFORMATION PER OKAY FROM PATIENT. SON REQUESTED ALL INFORMATION AND CHANGE IN PLAN OF CARE TO BE DISCUSSED WITH HIM PRIOR TO ANY CHANGES. SON STATES HE WILL BE BACK IN THE MORNING WITH POA PAPERWORK.
[2017-10-18] MEDS: DOCUSATE SODIUM 100 MG GELCAP PO SCH (21:27)
--- NOTE | 2017-10-18 21:30 | NUR ---
PATIENT BLOOD PRESSURE IS LOW, HELD APRESOLINE. DR. Louie BOLIVAR AWARE. NO SIGNS OR SYMPTOMS OF ACUTE DISTRESS NOTED. CALL LIGHT WITHIN REACH. WILL CONTINUE TO MONITOR.
[2017-10-19] VITALS: BP 149/59
[2017-10-19] MEDS: MILD SOAP AND WATER TP SCH ×2 (00:31→12:28)
[2017-10-19] MEDS: HYDRAGUARD CREAM TP SCH ×2 (00:31→12:28)
[2017-10-19 04:00] VITALS: BP 135/61
[2017-10-19] MEDS: DEXT 5% /NACL 0.9% 1,000 ML IV SCH ×2 (06:10→11:10)
[2017-10-19] MEDS: BLOOD GLUCOSE MONITORING 1 DEV DEV FS SCH ×5 (06:23→21:45)
[2017-10-19 06:32] LABS: BASOPHILS # (AUTO) 0.1 K/uL (0.00-0.22); BASOPHILS % (AUTO) 2.7 % (0.0-2.0); EOSINOPHILS # (AUTO) 0.3 K/uL (0-0.4); HEMATOCRIT 23.8 % (36-52); HEMOGLOBIN 7.6 g/dL (12.0-18.0); LYMPHOCYTES # (AUTO) 1.3 K/uL (2.0-11.5); LYMPHOCYTES % (AUTO) 26.8 % (20.5-51.1); MEAN CORPUSCULAR HEMOGLOBIN 30 pg (27-31); MEAN CORPUSCULAR HGB CONC 32 g/dL (33-37); MEAN CORPUSCULAR VOLUME 92 fL (80-94); MONOCYTES # (AUTO) 0.5 K/uL (0.8-1.0); MONOCYTES % (AUTO) 10.4 % (1.7-9.3); NEUTROPHILS # (AUTO) 2.5 K/uL (1.8-7.7); NEUTROPHILS % (AUTO) 53.1 % (42.2-75.2); PLATELET COUNT (AUTO) 135 K/uL (140-450); RED BLOOD CELL COUNT(AUTO) 2.58 MIL/uL (4.20-6.10); RED CELL DISTRIBUTION WIDTH 15.6 % (11.6-13.7); WHITE BLOOD COUNT (AUTO) 4.7 K/uL (4.8-10.8)
[2017-10-19 06:46] LABS: ANION GAP 14.8 (8-16); CARBON DIOXIDE 23.9 mmol/L (21-32); CHLORIDE 107 mmol/L (98-107); GLUCOSE 100 mg/dL (74-106); POTASSIUM 3.7 mmol/L (3.5-5.1); SODIUM SERUM 142 mmol/L (136-145); UREA NITROGEN, BLOOD 52 mg/dL (7-18)
[2017-10-19 07:20] LABS: CREATININE 7.7 mg/dL (0.7-1.3)
--- NOTE | 2017-10-19 07:51 | NUR ---
ENDORSED PLAN OF CARE TO AM RN. PATIENT IN STABLE CONDITION
[2017-10-19 08:00] VITALS: BP 169/67
--- NOTE | 2017-10-19 08:00 | NUR ---
RECEIVED REPORT FROM MANDO RN FOR CONTINUITY OF CARE. PATIENT AWAKE A/OX4 NO S/S OF RESP DISTRESS NOTED NO COMPLAIN OF PAIN ABLE TO MAKE NEEDS KNOWN. IV SITE RT AC GAUGE 20 INTACT AND PATENT IVF INFUSING WELL . PLAN OF CARE DISCUSSED WITH THE PATIENT VITALS STABLE WILL CONTINUE TO MONITOR.
[2017-10-19] MEDS: CALCIUM ACETATE 667 MG TAB PO SCH ×3 (08:37→17:08)
[2017-10-19] MEDS: TAMSULOSIN 0.4 MG CAP PO SCH (08:37)
[2017-10-19] MEDS: PANTOPRAZOLE 40 MG INJ VIAL IVP SCH (08:38)
[2017-10-19] MEDS: SODIUM BICARBONATE 650 MG TAB PO SCH ×3 (08:39→17:07)
[2017-10-19] MEDS: hydrALAZINE 25 MG TAB PO SCH ×2 (08:40→21:42)
[2017-10-19] MEDS: METOPROLOL SUCCINATE 50 MG TABER PO SCH (08:41)
[2017-10-19] MEDS: SENNA 8.6 MG TAB PO SCH (08:41)
[2017-10-19] MEDS: ALLOPURINOL 100 MG TAB PO SCH (08:44)
--- NOTE | 2017-10-19 08:52 | NUR ---
DUE MEDS GIVEN TOLERATED WELL , ATE BREAKFAST GOOD APPETITE
--- NOTE | 2017-10-19 10:00 | NUR ---
DR OSMEL Fay VISITED PATIENT FAMILY (SON ) AT THE BED SIDE SPOKE WITH DR OSMEL Fay NEW ORDER CARRIED OUT
--- NOTE | 2017-10-19 11:00 | NUR ---
REFUSED PHYSICAL THERAPY STATED TOO TIRED
--- NOTE | 2017-10-19 12:00 | NUR ---
CHECKED BLOOD SUGAR 106 NO COVERAGE NEEDED VITALS STABLE
[2017-10-19 12:24] VITALS: BP 141/52
[2017-10-19] MEDS: FOAM DRESSING TP SCH (12:27)
[2017-10-19] MEDS: MUPIROCIN 2% OINT 22 GM TUBE TP SCH (14:00)
[2017-10-19] MEDS: CHLORHEXADINE GLUC 2% CLOTH TP SCH (14:00)
--- NOTE | 2017-10-19 14:00 | NUR ---
RELAXED TALKING TO FAMILY MEMBER NO DISTRESS NOTED
--- NOTE | 2017-10-19 14:10 | NUR ---
DR LAM VISITED PATIENT NEW ORDER 1 UNIT PRBC TO BE INFUSED
--- NOTE | 2017-10-19 14:20 | NUR ---
PT NOTES CHART REVIEWED AND CLEARED FOR PT BY RN. PATIENT IN SEMIFOWLER POSITION SLEEPING AND EASILY AROUSED. PATIENT INITIALLY SHAKING HEAD NO TO ACTIVE PARTICIPATION IN THERAPY, STATING; "NO, I'M SORRY I CAN'T TODAY BECAUSE I'M TIRED" PER PATIENT. DESPITE MUCH EFFORT TO EDUCATE AND MOTIVATE ACTIVE PARTICIPATION, ALONG WITH EDUCATION REGARDING POSSIBLE COMPLICATION OF PROLONG BED REST, PATIENT CONTINUED TO DECLINE ACTIVE PARTICIPATION. PATIENT STATING, "TOMORROW I WILL, COME TOMORROW" PER PATIENT. SON (KATELIN) NOT PRESENT AT THIS TIME. TRAY AND CALL LIGHT IN REACH. RN MADE AWARE. WILL FOLLOW UP PATIENT TOMORROW IF POSSIBLE. (ATTEMPTED 1100) Addendum: 10/19/17 at 1437 by Sarah Burris PT PHYSICAL THERAPY CO-SIGN The Physical Therapy Progress Notes documented by Healthcare Facility Administrator have been reviewed. Reviewed/Co-Signed by: Sarah Burris PT Documentation Done by: PEGGY VU PTA NO CONSENT FOR CARE GIVEN DESPITE PATIENT EDUCATION.
[2017-10-19 16:00] VITALS: BP 107/59
--- NOTE | 2017-10-19 16:30 | NUR ---
CHECKED BLOOD SUGAR 155 SLIDING SCALE COVERAGE 2 UNITS HUMALOG GIVEN. VITALS STABLE
--- NOTE | 2017-10-19 18:00 | NUR ---
BLOOD TRANSFUSION STARTED VITALS STABLE WILL CONTINUE TO MONITOR
--- NOTE | 2017-10-19 19:35 | NUR ---
RECEIVED PT IN STABLE CONDITION FROM AM NURSE. AWAKE,ALERT AND ORIENTED X4. ON TELE MONITOR -PACED. ON O22L/NC. BEDREST .CAN BE UP WITH ASSISTANCE. GETTING I UNIT PRBC BLOOD TRANSFUSION ON THE RT AC #20. INFUSING WELL. WITH PRESSURE ULCER ON THE LT BUTTOCKS . WITH DRESSING ON. PLAN OF CARE DISCUSSED . BED ON LOW POSITION, CALL LIGHT AND URINAL PLACED WITHIN EASY REACH. INSTRUCTED TO CALL FOR ANY ASSISTANCE NEEDED. WILL CONTINUE TO MONITOR.
[2017-10-19 20:25] VITALS: BP 155/58
--- NOTE | 2017-10-19 20:25 | NUR ---
BLOOD TRANSFUSION DONE. VITAL SIGNS TAKEN , STABLE. NO REACTION NOTED. WILL CONTINUE TO MONITOR.
[2017-10-19] MEDS: DOCUSATE SODIUM 100 MG GELCAP PO SCH (21:42)
--- NOTE | 2017-10-19 22:05 | NUR ---
PT IS RESTING IN BED COMPLAINING OF FEELING COLD. 98.8F. PT WAS GIVEN A WARM BLANKET AND FAN WAS SET TO LOW. HEATER IS ON. CALL LIGHT WITHIN REACH. BED IN LOWEST POSITION. WILL CONTINUE TO MONITOR.
[2017-10-20] VITALS: BP 165/59
[2017-10-20] MEDS ORDERED: guaiFENesin DM 200/20 MG-10 ML 10 ML UDC PO PRN (00:15)
--- NOTE | 2017-10-20 00:15 | NUR ---
PT HAS NON PRODUCTIVE INTERMITTENT COUGH. PT IS CONCERN ABOUT HIS BREATHING ALTHOUGH O2 SAT ON O22LNC IS 98%, PAGED Nya OLIVARES CALLED BACK AND MADE AWARE. WITH ORDERS.
[2017-10-20] MEDS: HYDRAGUARD CREAM TP SCH ×2 (01:00→12:27)
[2017-10-20] MEDS: MILD SOAP AND WATER TP SCH ×2 (01:00→12:27)
--- NOTE | 2017-10-20 02:55 | NUR ---
PT C/O HARD TIME BREATHING ,ON O22L NC 985 O2 SAT. BUT STILL WANTS TO HAVE HIS INHALER. CALLED SON ,KATELIN AND ASKED WHAT INHALER PT IS USING AT HOME. HE SAID VENTOLIN AND SYMBICORT. WILL CALL
--- NOTE | 2017-10-20 03:05 | NUR ---
PAGED DR. BOLIVAR FOR PT COMPLAINING HAVING A HARD TIME BREATHING AND WANTING TO TAKE HIS INHALER.
--- NOTE | 2017-10-20 03:46 | NUR ---
SPOKE WITH DR. BOLIVAR WITH ORDER FOR BREATHING TREATMENT.
[2017-10-20 04:00] VITALS: BP 162/66
[2017-10-20] MEDS: ALBUTEROL SULFATE/IPRATROPIU 3 ML SOL IH PRN ×3 (04:17→20:41)
--- NOTE | 2017-10-20 04:17 | NUR ---
PT RECEIVED BREATHING TREATMENT WITH RT.
--- NOTE | 2017-10-20 05:20 | NUR ---
PT SLEEPING IN BED. NO S/S OF RESPIRATORY DISTRESS OR DISCOMFORT. BED IN LOWEST POSITION. CALL LIGHT WITHIN REACH. WILL CONTINUE TO MONITOR.
[2017-10-20 06:24] LABS: BASOPHILS # (AUTO) 0.1 K/uL (0.00-0.22); EOSINOPHILS # (AUTO) 0.3 K/uL (0-0.4); EOSINOPHILS % (AUTO) 4.9 % (0.0-4.0); HEMATOCRIT 26.7 % (36-52); HEMOGLOBIN 8.7 g/dL (12.0-18.0); LYMPHOCYTES # (AUTO) 1.4 K/uL (2.0-11.5); MEAN CORPUSCULAR HEMOGLOBIN 30 pg (27-31); MEAN CORPUSCULAR HGB CONC 33 g/dL (33-37); MEAN CORPUSCULAR VOLUME 92 fL (80-94); MONOCYTES # (AUTO) 0.7 K/uL (0.8-1.0); MONOCYTES % (AUTO) 11.5 % (1.7-9.3); NEUTROPHILS # (AUTO) 3.3 K/uL (1.8-7.7); NEUTROPHILS % (AUTO) 57.6 % (42.2-75.2); PLATELET COUNT (AUTO) 125 K/uL (140-450); RED BLOOD CELL COUNT(AUTO) 2.92 MIL/uL (4.20-6.10); RED CELL DISTRIBUTION WIDTH 16.1 % (11.6-13.7); WHITE BLOOD COUNT (AUTO) 5.8 K/uL (4.8-10.8)
[2017-10-20] MEDS: BLOOD GLUCOSE MONITORING 1 DEV DEV FS SCH ×4 (06:25→20:37)
[2017-10-20 06:30] LABS: ANION GAP 14.4 (8-16); CARBON DIOXIDE 24.4 mmol/L (21-32); CHLORIDE 107 mmol/L (98-107); GLUCOSE 99 mg/dL (74-106); MAGNESIUM 1.7 mg/dL (1.8-2.4); PHOSPHORUS 4.5 mg/dL (2.5-4.9); POTASSIUM 3.8 mmol/L (3.5-5.1); SODIUM SERUM 142 mmol/L (136-145); UREA NITROGEN, BLOOD 47 mg/dL (7-18)
[2017-10-20 06:36] LABS: CREATININE 7.7 mg/dL (0.7-1.3)
--- NOTE | 2017-10-20 07:25 | NUR ---
ENDORSED PT IN STABLE CONDITION TO AM NURSE.
--- NOTE | 2017-10-20 07:30 | NUR ---
RECEIVED REPORT FROM SYSTEMS SOFTWARE ENGINEER NURSE, PT IS RESTING IN BED IN SEMI FOWLERS POSITION, PT IS AAOX4, AMBULATES WITH ASSIST, PT IS ON O2 2L NC, PT HAS IV ON HIS RT AC, PATENT, INTACT, FLUSHING WELL, NO S/S OF RESPIRATORY DISTRESS OR DISCOMFORT NOTED, DISCUSSED PLAN OF CARE WITH PT, PT VERBALIZED UNDERSTANDING, SAFETY/FALL PRECAUTIONS ARE IN PLACE, CALL LIGHT IS WITHIN REACH, WILL CONTINUE TO MONITOR.
[2017-10-20 08:00] VITALS: BP 158/60
--- NOTE | 2017-10-20 08:12 | NUR ---
ASLEEP NO EVIDENCE OF SOB NOTED AT THIS TIME
[2017-10-20] MEDS: CALCIUM ACETATE 667 MG TAB PO SCH ×3 (09:10→17:03)
[2017-10-20] MEDS: hydrALAZINE 25 MG TAB PO SCH ×2 (09:11→20:38)
[2017-10-20] MEDS: ALLOPURINOL 100 MG TAB PO SCH (09:11)
[2017-10-20] MEDS: SODIUM BICARBONATE 650 MG TAB PO SCH ×3 (09:11→17:03)
[2017-10-20] MEDS: TAMSULOSIN 0.4 MG CAP PO SCH (09:11)
[2017-10-20] MEDS: METOPROLOL SUCCINATE 50 MG TABER PO SCH (09:12)
[2017-10-20] MEDS: PANTOPRAZOLE 40 MG INJ VIAL IVP SCH (09:12)
[2017-10-20] MEDS: SENNA 8.6 MG TAB PO SCH (09:13)
--- NOTE | 2017-10-20 09:13 | NUR ---
DUE MEDICATIONS GIVEN, PT TOLERATED WELL, ALL NEEDS ARE MET AT THIS TIME, CALL LIGHT IS WITHIN REACH.
[2017-10-20] MEDS: DEXT 5% /NACL 0.9% 1,000 ML IV SCH (09:18)
--- NOTE | 2017-10-20 11:01 | NUR ---
SPOKE TO DR. BOLIVAR, I LET HIM KNOW THE PATIENT'S MG WAS 1.7, PER DR. BOLIVAR ORDER MG RIDER 2 GM FOR PATIENT. I ALSO LET HIM KNOW THE PATIENT'S SON WAS HERE AND WAS WANTED TO SPEAK TO HIM. DR. BOLIVAR SAID HE WOULD BE COMING IN THE AFTERNOON.
[2017-10-20 12:00] VITALS: BP 143/56
[2017-10-20] MEDS ORDERED: MAG SULF 2000 MG/WATER PREMIX 50 ML IV SCH (12:00)
--- NOTE | 2017-10-20 12:45 | NUR ---
CONVERSATION WITH DR MIRIAM BOLIVAR IN REGARDS TO OXYGEN ORDER OF 2 LPM BRIAN CERVANTES STATES "THAT'S FINE"
--- NOTE | 2017-10-20 13:10 | NUR ---
PT RESTING IN BED, PT REFUSED SPONGE BATH AND CHANGE OF GOWN AT THIS TIME.
--- NOTE | 2017-10-20 14:21 | NUR ---
10/20/17 RD FOLLOW UP COMPLETED. PLEASE REFER TO NUTRITION ASSESSMENT UNDER CARE ACTIVITY FOR ESTIMATED NUTRITIONAL NEEDS. CONTINUE CURRENT DIET TOLERATED RD TO FOLLOW-UP IN 3-5 DAYS PATIENT IS MODERATE RISK. ANGELA HOUSTON RD
--- NOTE | 2017-10-20 14:57 | NUR ---
CM NOTE CLINICAL INFORMATION FAXED TO [facility] FOR [facility] REVIEW / FAX# [phone], ATTN: YENY#[phone]
--- NOTE | 2017-10-20 15:12 | NUR ---
PT RESTING IN BED, WATCHING A VIDEO ON HIS LAPTOP, ALL NEEDS MET AT THIS TIME, CALL LIGHT IS WITHIN REACH.
[2017-10-20 16:00] VITALS: BP 141/53
[2017-10-20] MEDS ORDERED: VANCOMYCIN PER PHARMACY MC PRN ×2 (16:00→16:05)
[2017-10-20] MEDS ORDERED: VANCOMYCIN 1GM/DEXT 5% PREMIX 200 ML IV SCH (17:00)
[2017-10-20] MEDS: LEVOFLOXACIN 500 MG/D5W PREMIX 100 ML IV SCH (17:03)
--- NOTE | 2017-10-20 19:25 | NUR ---
ENDORSED PT TO SAFEMAKER NURSE FOR CONTINUITY OF CARE, PT STABLE AT THIS TIME.
--- NOTE | 2017-10-20 19:30 | NUR ---
PT RESTING IN BED. AOX4. O2 2L/NC. NO S/S OF RESPIRATORY DISTRESS OR DISCOMFORT NOTED. TELE MONITOR PACED. RIGHT AC HEPLOCK. CONTACT PRECAUTIONS. BED IN LOWEST POSITION. CALL LIGHT WITHIN REACH. WILL CONTINUE TO MONITOR.
[2017-10-20 20:00] VITALS: BP 158/66
[2017-10-20] MEDS: DOCUSATE SODIUM 100 MG GELCAP PO SCH (20:38)
--- NOTE | 2017-10-20 20:40 | NUR ---
BLOOD GLUCOSE 107. NO INSULIN NEEDED AT THIS TIME. MEDICATIONS WERE WELL TOLERATED.
--- NOTE | 2017-10-20 22:22 | NUR ---
PT IS SLEEPING AT THIS TIME. NO S/S OF RESPIRATORY DISTRESS OR DISCOMFORT NOTED. BED IN LOWEST POSITION. CALL LIGHT WITHIN REACH. WILL CONTINUE TO MONITOR.
[2017-10-21] VITALS: BP 143/53
--- NOTE | 2017-10-21 00:30 | NUR ---
PT IS ON STABLE CONDITION. VITAL SIGNS STABLE. NO C/O OF ANY PAIN NOTED. ON O2 4L/NC. WILL CONTINUE TO MONITOR.
[2017-10-21] MEDS: HYDRAGUARD CREAM TP SCH ×2 (01:00→12:22)
[2017-10-21] MEDS: MILD SOAP AND WATER TP SCH ×2 (01:00→12:22)
--- NOTE | 2017-10-21 01:00 | NUR ---
PT REFUSED TO HAVE LT BUTTOCKS DRESSING CHANGED. HE WANTS TO SLEEP.
--- NOTE | 2017-10-21 03:30 | NUR ---
PT USED URINAL VOIDED @150 ML. NO C/O ANY PAIN NOTED AT THIS TIME.
[2017-10-21 04:00] VITALS: BP 100/58
--- NOTE | 2017-10-21 05:30 | NUR ---
PT SLEEPING IN BED. NO S/S OF RESPIRATORY DISTRESS OR DISCOMFORT. WILL CONTINUE TO MONITOR.
[2017-10-21 06:04] LABS: BASOPHILS # (AUTO) 0.1 K/uL (0.00-0.22); BASOPHILS % (AUTO) 1.3 % (0.0-2.0); EOSINOPHILS # (AUTO) 0.2 K/uL (0-0.4); EOSINOPHILS % (AUTO) 4.5 % (0.0-4.0); HEMATOCRIT 23.9 % (36-52); LYMPHOCYTES # (AUTO) 1.2 K/uL (2.0-11.5); MEAN CORPUSCULAR HEMOGLOBIN 30 pg (27-31); MEAN CORPUSCULAR HGB CONC 33 g/dL (33-37); MEAN CORPUSCULAR VOLUME 91 fL (80-94); MONOCYTES # (AUTO) 0.6 K/uL (0.8-1.0); MONOCYTES % (AUTO) 11.3 % (1.7-9.3); NEUTROPHILS # (AUTO) 3.2 K/uL (1.8-7.7); NEUTROPHILS % (AUTO) 59.4 % (42.2-75.2); PLATELET COUNT (AUTO) 125 K/uL (140-450); RED BLOOD CELL COUNT(AUTO) 2.62 MIL/uL (4.20-6.10); RED CELL DISTRIBUTION WIDTH 15.9 % (11.6-13.7); WHITE BLOOD COUNT (AUTO) 5.3 K/uL (4.8-10.8)
[2017-10-21 06:09] LABS: LYMPHOCYTES % (AUTO) 24.3 % (20.5-51.1)
[2017-10-21 06:20] LABS: PHOSPHORUS 4.3 mg/dL (2.5-4.9)
[2017-10-21 06:24] LABS: ANION GAP 13.9 (8-16); CARBON DIOXIDE 24.1 mmol/L (21-32); CHLORIDE 105 mmol/L (98-107); GLUCOSE 92 mg/dL (74-106); SODIUM SERUM 139 mmol/L (136-145); UREA NITROGEN, BLOOD 44 mg/dL (7-18)
[2017-10-21 06:37] LABS: CREATININE 7.8 mg/dL (0.7-1.3)
[2017-10-21] MEDS: BLOOD GLUCOSE MONITORING 1 DEV DEV FS SCH ×4 (06:45→20:45)
[2017-10-21] MEDS: ALBUTEROL SULFATE/IPRATROPIU 3 ML SOL IH PRN ×3 (07:29→18:56)
--- NOTE | 2017-10-21 07:44 | NUR ---
PT STABLE AND ENDORSED TO AM NURSE.
--- NOTE | 2017-10-21 07:50 | NUR ---
RECEIVED PATIENT REPORT AT BEDSIDE FROM NIGHT NURSE. PATIENT IS AAOX4 AND SHOWS NO S/S OF ACUTE DISTRESS ON ROOM AIR. PATIENT DENIES PAIN. IV NOTED ON THE RIGHT AC SL. NOTED DRX ON THE LEFT BUTTOCK CLEAN DRY AND INTACT. PATIENT WAS EXPLAINED POC FOR TODAY AND VERBALIZED UNDERSTANDING. ALL NEEDS MET AT THIS TIME. BED IN LOW POSITION, CALL LIGHT WITHIN REACH, SAFETY PRECAUTIONS IN PLACE.
[2017-10-21 08:12] VITALS: BP 144/100
[2017-10-21] MEDS: PANTOPRAZOLE 40 MG INJ VIAL IVP SCH (08:26)
[2017-10-21] MEDS: CALCIUM ACETATE 667 MG TAB PO SCH ×3 (08:27→17:14)
[2017-10-21] MEDS: TAMSULOSIN 0.4 MG CAP PO SCH (08:27)
[2017-10-21] MEDS: ALLOPURINOL 100 MG TAB PO SCH (08:27)
[2017-10-21] MEDS: hydrALAZINE 25 MG TAB PO SCH ×2 (08:29→20:44)
[2017-10-21] MEDS: SENNA 8.6 MG TAB PO SCH (08:29)
[2017-10-21] MEDS: METOPROLOL SUCCINATE 50 MG TABER PO SCH (08:29)
[2017-10-21] MEDS: SODIUM BICARBONATE 650 MG TAB PO SCH ×3 (08:29→17:14)
[2017-10-21] MEDS: FOAM DRESSING TP SCH (08:32)
--- NOTE | 2017-10-21 08:50 | NUR ---
DR BOLIVAR IS SEEING PATIENT, WAS NOTIFIED OF PATIENT'S EMPTY SYMBICORT INHALER AT BED SIDE AND THAT PATIENT REQUESTED A REFILL, STATED, "ORDERS WILL BE PLACE AT DISCHARGE."
--- NOTE | 2017-10-21 08:53 | NUR ---
ENTRY FOR 10/19/17 PT COMPLETED AN ADVANCED DIRECTIVE. DOCUMENT REVIEWED FOR VALIDITY AND VERIFIED AND COPY PLACED IN CHART.
--- NOTE | 2017-10-21 09:45 | NUR ---
PATIENT'S SON KATELIN AT BEDSIDE AND STATED CONCERNS REGARDING PATIENT'S CARE, HE STATED, "HOW IS DR. HOFFMAN HELPING TO IMPROVE HIS KIDNEY FUNCTION." WITH PATIENT'S PERMISSION TO GIVE HIS SON UPDATES ON HIS POC, KATELIN WAS NOTIFIED OF DR. HOFFMAN'S POC TO MONITOR LABS AT THIS TIME. KATELIN STATED, "I'VE LEFT HIM THREE VOICEMAIL'S BUT HE HASN'T RETURNED MY CALLS." KATELIN WAS CALMED DOWN AND IS AWARE OF THE CONSULTS THE PATIENT HAS FOR TODAY AND THAT THE PATIENT'S CARE WILL BE DISCUSSED WITH HIM ONCE THE CONSULTATIONS SEE HIM TODAY. KATELIN AGREED AND GAVE ME HIS PHONE NUMBER [phone]. ALL NEEDS MET AT THIS TIME.
--- NOTE | 2017-10-21 10:15 | NUR ---
PATIENT AMB WITH ASSISTIVE DEVICE WITH SON. PATIENT HAS STEADY GAIT.
--- NOTE | 2017-10-21 10:38 | NUR ---
SPOKE WITH YENY JOHN WILLCOX, PHONE [phone]. I INFORMED HER THAT DR. KOROMA SAW THE PATIENT AND THE PATIENT IS NOW ON [address]. I FAXED [address]. KOROMA'S CONSULT AND THE NEW MED SHEET TO HER AT [phone] SHE REQUESTED.
[2017-10-21 12:20] VITALS: BP 140/60
--- NOTE | 2017-10-21 14:18 | NUR ---
PT NOTES CHART REVIEWED AND CLEARED FOR PT BY NURSING, KILO. ISO PRECAUTIONS OBSERVED. ATTEMPTED TO SEE PATIENT AT 1350. PT REFUSED ALL SKILLED INTERVENTIONS AT THIS TIME. EDUCATED PT THE IMPORTANCE/BENEFITS OF PERFORMING PHYSICAL THERAPY AND OOB. NURSING ALSO DISCUSSED WITH PATIENT THE IMPORTANCE OF PARTICIPATING WITH THERAPY. PT STATES, " I FEEL WEAK RIGHT NOW AND I WANT TO BE LEFT ALONE. I WAS ABLE TO GET UP EARLIER WITH MY FAMILY. I WANT TO BE LEFT ALONE AND GET REST." FOLLOW UP WITH PATIENT NEXT SESSION. PVE(1) Addendum: 10/21/17 at 1434 by Nanette Yao PT PHYSICAL THERAPY CO-SIGN The Physical Therapy Progress Notes documented by Assembler [employer] Buildings have been reviewed. Reviewed/Co-Signed by: Nanette Yao PT Documentation Done by: Tommy Berrios, [facility]
--- NOTE | 2017-10-21 14:28 | NUR ---
DR Nya BOLIVAR PAGED AND CALLED BACK, MADE AWARE OF PT'S SON'S (KATELIN) REQUEST TO DISCUSS PLAN OF CARE, DR Dena BOLIVAR MADE AWARE THAT PT WAS ACCEPTED AT [facility] BUT SON WAS NOT AWARE OF THE PLAN AND REFUSES TO TRANSFER UNTIL HE SPEAKS WITH DOCTOR. PHONE NUMBER [phone] Dena BOLIVAR.
--- NOTE | 2017-10-21 14:45 | NUR ---
SPOKE WITH DR. Nya BOLIVAR AND REQUESTED TO HAVE DR. HOFFMAN BE NOTIFIED OF PATIENT'S FAMILY AGREEING TO POSSIBLE HD INTERVENTIONS.
--- NOTE | 2017-10-21 14:50 | NUR ---
DR HOFFMAN WAS CALLED AND WAS MADE AWARE OF PATIENT'S FAMILY AGREEING TO HAVE INTERVENTION FOR HD. DR HOFFMAN STATED HE WILL CALL FAMILY TODAY AND COME SEE PATIENT.
--- NOTE | 2017-10-21 15:32 | NUR ---
SPOKE WITH YENY FROM [place]. SHE SAID THE PATIENT HAS BEEN ACCEPTED AT [facility]OTH [facility] AND [facility].. YENY SAID THE SON WANTED TO SPEAK FIRST WITH DR. BOLIVAR AND DR. HOFFMAN. YENY, PHONE [phone].
[2017-10-21 15:59] LABS: ANION GAP 10.6 (8-16); CARBON DIOXIDE 26.4 mmol/L (21-32); CHLORIDE 102 mmol/L (98-107); GLUCOSE 95 mg/dL (74-106); SODIUM SERUM 135 mmol/L (136-145); UREA NITROGEN, BLOOD 46 mg/dL (7-18)
[2017-10-21 16:02] LABS: CREATININE 7.9 mg/dL (0.7-1.3)
[2017-10-21 16:15] VITALS: BP 128/58
--- NOTE | 2017-10-21 16:41 | NUR ---
PT UNABLE TO EXPECTORATE SPUTUM AT THIS TIME. BS CLEAR/DIMINISHED.
--- NOTE | 2017-10-21 17:17 | NUR ---
ADMINISTERED SCHEDULED MEDICATIONS, PATIENT SWALLOWED WITHOUT DIFFICULTY, ALL NEEDS MET AT THIS TIME, BED IN LOW POSITION WITH CALL LIGHT WITHIN REACH.
--- NOTE | 2017-10-21 18:30 | NUR ---
PATIENT AMB ON UNIT WITH DAUGHTER AND SON IN LAW, PATIENT HAS STEADY GAIT AND SHOWS NO S/S OF ACUTE DISTRESS.
--- NOTE | 2017-10-21 18:45 | NUR ---
DR HOFFMAN STATED, "ENDORSE TO THE NIGHT NURSE THAT IF DR COHEN HAS NOT PLACED A TIME FOR SURGERY TOMORROW FOR THIS PATIENT TO CALL ME SO THAT I MAY CONSULT A DIFFERENT SURGEON."
--- NOTE | 2017-10-21 19:35 | NUR ---
GAVE REPORT TO BEVERLY NIGHT NURSE, AND IS AWARE OF DR COHEN BEING A CONSULT FOR PATIENT'S PROCEDURE FOR TOMORROW. DR COHEN WAS PAGED TO NOTIFY HIM OF THE CASE, DR COHEN HAS NOT CALLED BACK, BEVERLY MASTERS IS AWARE AND WILL AWAIT CALL BACK FROM DR COHEN. PATIENT ENDORSED IN STABLE CONDITION, FAMILY AT BEDSIDE.
--- NOTE | 2017-10-21 19:45 | NUR ---
RECEIVED REPORT FROM AM NURSE. PT RESTING IN BED, AOX4, AMBULATES WITH CANE, HARD OF HEARING, ABLE TO VERBALIZE NEEDS. CENTRAL SUPPLY CLERK IN PLACE. PT DENIES CP, SOB, N/V. SPO2 96% ON O2 2L NC, RR 16 EVEN AND UNLABORED. DISCUSSED AND REVIEWED PLAN OF CARE WITH PT AND PT'S SON WHO VERBALIZED UNDERSTANDING. ALL NEEDS MET. SAFETY MEASURES ENSURED. CALL LIGHT WITHIN REACH.
[2017-10-21 20:00] VITALS: BP 135/53
--- NOTE | 2017-10-21 20:30 | NUR ---
PAGED DR COHEN'S PAGER AGAIN, AWAITING CALLBACK
[2017-10-21] MEDS: FUROSEMIDE 20 MG/2 ML VIAL IVP SCH (20:44)
[2017-10-21] MEDS: DOCUSATE SODIUM 100 MG GELCAP PO SCH (20:44)
--- NOTE | 2017-10-21 20:44 | NUR ---
BLOOD GLUCOSE 100, NO INSULIN COVERAGE NEEDED. PT'S R AC IV LEAKING, REMOVED, CANNULA INTACT, PT TOLERATED WELL. NEW IV 20G INSERTED ON R FA, PT TOLERATED WELL. ADMINISTERED DUE MEDS WITH EDUCATION. PT VERBALIZED UNDERSTANDING, TOLERATED WELL. PT URINATED 150ML CLEAR YELLOW URINE IN URINAL, EMPTIED. ALL NEEDS MET. SAFETY MEASURES ENSURED. CALL LIGHT WITHIN REACH.
--- NOTE | 2017-10-21 20:45 | NUR ---
GTUBE PLACEMENT VERIFIED, RESIDUAL 1ML, ADMINISTERED GT MEDS WITH EDUCATION. ADMINISTERED REMAINING MEDS WITH EDUCATION. WILL CONTINUE WITH CONSTANT REINFORCEMENT. ALL NEEDS MET. IVF INFUSING WELL. SAFETY MEASURES ENSURED. CALL LIGHT WITHIN REACH. Addendum: 10/21/17 at 2252 by Lamine Alcazar RN DISREGARD; WRONG PATIENT
--- NOTE | 2017-10-21 21:45 | NUR ---
PAGED DR COHEN'S CALL CENTER, AWAITING CALL BACK.
--- NOTE | 2017-10-21 22:30 | NUR ---
CALLED DR COHEN, MADE MD AWARE OF CONSULT, DISCUSSED DX ACUTE RENAL FAILURE, DEHYDRATION AND ELEVATED TROPONINS. MADE MD AWARE THAT DR HOFFMAN PLANS TO HAVE TUNNELED CATH PLACEMENT TOMORROW MORNING FOR HD. MD STATED THAT HE DOES NOT KNOW YET AT THIS TIME IF HE IS ABLE TO DO SURGERY FOR PT TOMORROW MORNING YET. ORDERS RECEIVED TO KEEP PT NPO AT MIDNIGHT. DR HOFFMAN PAGED TO NOTIFY.
--- NOTE | 2017-10-21 23:30 | NUR ---
RECEIVED CALLBACK FROM DR HOFFMAN, NOTIFIED THAT DR COHEN WAS NOTIFIED OF PLAN OF TUNNELED CATH PLACEMENT TOMORROW MORNING BUT DR COHEN WAS NOT SURE YET IF HE IS ABLE TO, MADE AWARE THAT DR COHEN ORDERED TO KEEP PT NPO AT THIS TIME. STATED THAT'S FINE.
[2017-10-22] VITALS: BP 114/60
[2017-10-22] MEDS: HYDRAGUARD CREAM TP SCH ×2 (01:00→13:24)
[2017-10-22] MEDS: MILD SOAP AND WATER TP SCH ×2 (01:00→13:24)
--- NOTE | 2017-10-22 01:00 | NUR ---
WOUND CARE PERFORMED ORDERED. L BUTTOCK ERYTHEMA DRESSING CHANGED, CLEANSED WITH SOAP AND WATER, UNABLE TO FIND HYDRAGUARD, COVERED WITH NONADHERENT DRESSING AND COMPOSITE DRESSING. SPO2 96% ON ROOM AIR, RR 20 EVEN AND ULABORED. BILATERAL WHEEZING NOTED, PT DENIES SOB, PT STATED "BREATHING IS NOT A PROBLEM," PT REFUSED BREATHING TX AT THIS TIME, WILL MONITOR. ALL NEEDS MET. SAFETY MEASURES ENSURED. CALL LIGHT WITHIN REACH.
[2017-10-22 04:00] VITALS: BP 148/56
--- NOTE | 2017-10-22 04:00 | NUR ---
PT AGREED TO HAVE BREATHING TX, BILAT WHEEZES NOTED. SPO2 94% ON ROOM AIR, RR 20 EVEN AND AT BASELINE, BILAT WHEEZES NOTED. RT AT BEDSIDE TO ADMINISTER BREATHING TX. PT PLACED ON O2 2L NC. ALL NEED MET. SAFETY MEASURES ENSURED. CALL LIGHT WITHIN REACH.
[2017-10-22 06:34] LABS: BASOPHILS # (AUTO) 0.1 K/uL (0.00-0.22); BASOPHILS % (AUTO) 2.8 % (0.0-2.0); EOSINOPHILS # (AUTO) 0.3 K/uL (0-0.4); EOSINOPHILS % (AUTO) 5.6 % (0.0-4.0); HEMATOCRIT 23.6 % (36-52); HEMOGLOBIN 7.7 g/dL (12.0-18.0); LYMPHOCYTES # (AUTO) 1.3 K/uL (2.0-11.5); LYMPHOCYTES % (AUTO) 24.8 % (20.5-51.1); MEAN CORPUSCULAR HEMOGLOBIN 30 pg (27-31); MEAN CORPUSCULAR HGB CONC 33 g/dL (33-37); MEAN CORPUSCULAR VOLUME 91 fL (80-94); MONOCYTES # (AUTO) 0.6 K/uL (0.8-1.0); MONOCYTES % (AUTO) 11.3 % (1.7-9.3); NEUTROPHILS # (AUTO) 2.8 K/uL (1.8-7.7); NEUTROPHILS % (AUTO) 55.5 % (42.2-75.2); PLATELET COUNT (AUTO) 125 K/uL (140-450); RED BLOOD CELL COUNT(AUTO) 2.59 MIL/uL (4.20-6.10); RED CELL DISTRIBUTION WIDTH 15.8 % (11.6-13.7); WHITE BLOOD COUNT (AUTO) 5.1 K/uL (4.8-10.8)
[2017-10-22] MEDS: BLOOD GLUCOSE MONITORING 1 DEV DEV FS SCH ×4 (06:50→20:37)
[2017-10-22 07:07] LABS: PHOSPHORUS 4.2 mg/dL (2.5-4.9)
--- NOTE | 2017-10-22 07:30 | NUR ---
RECEIVED PT AAOX3-4 WITH PERIODS OF FORGETFULNESS. NO SOB NOTED. NO C/O PAIN AT THIS TIME. IV TO RT FOREARM PATENT AND INTACT, CHEST DIMINISHED AIR ENTRY TO THE BASES, ON OXYGEN AT 2LP VIA NASAL CANNULA WITHO2 SATS OF 96%. ABDOMEN SOFT, BOWEL SOUNDS PRESENT. NPO MAINTAINED FOR THE PLANNED PROCEDURE (TUNNELLED CATH PLACEMENT). INSTRUCTED PT TO CALL FOR ASSISTANCE, CALL LIGHT WITHIN REACH, BED ON LOW POSITION WITH 2 SIDE RAILS UP AND BED ALARM ON. PT VERBALIZED UNDERSTANDING.
--- NOTE | 2017-10-22 07:35 | NUR ---
ENDORSED PLAN OF CARE TO AM NURSE. CONDITION STABLE.
[2017-10-22 08:00] VITALS: BP 145/52
[2017-10-22] MEDS: CALCIUM ACETATE 667 MG TAB PO SCH ×3 (08:00→17:25)
[2017-10-22 08:01] LABS: ANION GAP 13.7 (8-16); CARBON DIOXIDE 24.3 mmol/L (21-32); CHLORIDE 102 mmol/L (98-107); GLUCOSE 87 mg/dL (74-106); SODIUM SERUM 136 mmol/L (136-145); UREA NITROGEN, BLOOD 45 mg/dL (7-18)
[2017-10-22 08:03] LABS: CREATININE 8.1 mg/dL (0.7-1.3)
[2017-10-22] MEDS: TAMSULOSIN 0.4 MG CAP PO SCH (08:30)
[2017-10-22] MEDS: ALLOPURINOL 100 MG TAB PO SCH (08:58)
[2017-10-22] MEDS: SENNA 8.6 MG TAB PO SCH (08:58)
[2017-10-22] MEDS: SODIUM BICARBONATE 650 MG TAB PO SCH ×3 (08:58→17:24)
[2017-10-22] MEDS: hydrALAZINE 25 MG TAB PO SCH ×2 (09:00→20:26)
[2017-10-22] MEDS: METOPROLOL SUCCINATE 50 MG TABER PO SCH (09:00)
--- NOTE | 2017-10-22 09:45 | NUR ---
PT SEEN BY DR. COHEN WITH NEW ORDERS. CONSENT FOR PLACEMENT OF PERMACATH FOR HEMODIALYSIS SIGNED BY PT, RISKS AND BENEFITS EXPLAINED BY DR. COHEN, PT VERBALIZED UNDERSTANDING.
[2017-10-22] MEDS: FUROSEMIDE 20 MG/2 ML VIAL IVP SCH ×2 (09:52→20:25)
[2017-10-22] MEDS: PANTOPRAZOLE 40 MG INJ VIAL IVP SCH (09:55)
--- NOTE | 2017-10-22 10:00 | NUR ---
EXPECTORATED SPUTUM SPECIMEN COLLECTED AND SENT TO LAB.
--- NOTE | 2017-10-22 10:11 | NUR ---
10/22/17 RD FOLLOW UP COMPLETED PLEASE REFER TO NUTRITION PROGRESS NOTE UNDER CARE ACTIVITY FOR ESTIMATED NUTRITION NEEDS. RD RECOMMENDATIONS: 1.CONTINUE NPO MEDICALLY APPROPRIATE. 2.IF/WHEN MEDICALLY APPRORIATE, CONSIDER INITIATING DIET OF CCHO 60 GM DUE TO HX DM. 3.IF/WHEN MEDICALLY APPROPRIATE, CONSIDER INITIATING VIT C, THERAGRAN, AND ZINC SULFATE FOR WOUND HEALING. 4.RD TO FOLLOW-UP IN 2-3 DAYS; PATIENT IS HIGH RISK. KAILEE MENDOZA, MS, RDN
[2017-10-22 12:00] VITALS: BP 153/62
[2017-10-22] MEDS ORDERED: BUPIVACAINE MPF 0.25% 10 ML VIAL INJ ONE (14:16)
[2017-10-22] MEDS ORDERED: LIDOCAINE MPF 1% - **ER/OR** 5 ML ONE (14:17)
--- NOTE | 2017-10-22 14:20 | NUR ---
PT WHEELED TO SURGERY IN STABLE CONDITION. DAUGHTER KYLER STAYED IN THE WAITING AREA.
[2017-10-22] MEDS ORDERED: fentaNYL 0.05 MG/ML VIAL ONE (14:22)
[2017-10-22] MEDS ORDERED: MIDAZOLAM 2 MG/2 ML VIAL ONE (14:24)
[2017-10-22] MEDS ORDERED: ONDANSETRON 4 MG/2 ML VIAL IVP PRN (14:35)
[2017-10-22] MEDS ORDERED: HYDROmorphone 1 MG/ML AMP IVP PRN ×2 (14:35→15:45)
[2017-10-22] MEDS ORDERED: diphenhydrAMINE 50 MG/ML VIAL IVP PRN (14:35)
[2017-10-22] MEDS ORDERED: VANCOMYCIN 1GM/DEXT 5% PREMIX 200 ML IV SCH (15:00)
[2017-10-22] MEDS ORDERED: MORPHINE SULFATE 4 MG/ML SYR IV PRN (15:45)
[2017-10-22] MEDS ORDERED: MORPHINE SULFATE 2 MG/ML SYR IVP PRN (15:45)
[2017-10-22] MEDS ORDERED: HYDROcodone/APAP 5/325 MG 1 TAB TAB PO PRN (15:45)
[2017-10-22] MEDS ORDERED: ONDANSETRON 4 MG/2 ML VIAL IV PRN (15:45)
[2017-10-22 16:20] VITALS: BP 146/61
--- NOTE | 2017-10-22 16:20 | NUR ---
PT BACK FROM PACU IN STABLE CONDITION. S/P RT IJ HD TUNNELED PERMACATH PLACEMENT. PT AAO, SON IN LAW AT THE BEDSIDE. V/S STABLE. NO SOB NOTED. NO SIGNS ON OF PAIN. PT STATED HE IS COLD, LATEST TEMP 98.4 F, ALECRN LEFT A HEATING BLANKET AT THE BEDSIDE AND WILL PICK IT UP TOMORROW.
--- NOTE | 2017-10-22 16:30 | NUR ---
Nya VILLAVICENCIO PAGED THRU EXCHANGE REGARDING PT'S HEMODIALYSIS SCHEDULE. AWAITING FOR CALL BACK.
[2017-10-22] MEDS: NACL 0.9% 1,000 ML IV SCH (17:25)
[2017-10-22] MEDS: LEVOFLOXACIN 500 MG/D5W PREMIX 100 ML IV SCH (18:12)
--- NOTE | 2017-10-22 18:20 | NUR ---
DR. DEREK HOFFMAN CALLED BACK, STATED HE WILL ORDER HEMODIALYSIS TOMORROW. LATEST BLOOD RESULTS RELAYED TO , NO NEW ORDERS GIVEN.
--- NOTE | 2017-10-22 18:49 | NUR ---
PT RESTING. NO SOB NOTED. NO SIGNS OF PAIN AT THIS TIME. RT IJ HD PERMACATHETER SITE IN RT UPPER CHEST CLEAN, DRESSING DRY AND INTACT. NO BLEEDING NOTED. DAUGHTER KYLER AT THE BEDSIDE. WILL ENDORSE TO NEXT SHIFT NURSE FOR CONTINUITY OF CARE.
--- NOTE | 2017-10-22 19:00 | NUR ---
RECEIVED REPORT FROM DAY SHIFT NURSE. AAOX4. PT'S DAUGHTER AT BEDSIDE. NO DISTRESS NOTED. IV TO RIGHT FA #20G, NS AT 60 ML/HR. RIGHT IJ DRESSING CLEAN, DRY AND INTACT. PT ON ROOM AIR. NO C/O PAIN. DISCUSSED PLAN OF CARE, PT VERBALIZED UNDERSTANDING. SAFETY PRECAUTION IN PLACE. CALL LIGHT WITHIN REACH. WILL CONTINUE TO MONITOR.
[2017-10-22 20:00] VITALS: BP 157/72
[2017-10-22] MEDS: DOCUSATE SODIUM 100 MG GELCAP PO SCH (20:26)
--- NOTE | 2017-10-22 21:00 | NUR ---
PT C/O SOB. PLACED PT ON O2 AT 2L/MIN. O2 SAT 98%. CALLED RT FOR BREATHING TREATMENT. PT'S GRANDSON AT BEDSIDE.
[2017-10-22] MEDS: ALBUTEROL SULFATE/IPRATROPIU 3 ML SOL IH PRN (21:08)
--- NOTE | 2017-10-22 22:20 | NUR ---
PT IN BED TALKING TO HIS GRANDSON AT BEDSIDE. PT STATED HE FEELS BETTER.
[2017-10-23] VITALS: BP 158/58
[2017-10-23] MEDS: HYDRAGUARD CREAM TP SCH ×2 (01:00→13:00)
[2017-10-23] MEDS: MILD SOAP AND WATER TP SCH ×2 (01:00→13:00)
--- NOTE | 2017-10-23 01:00 | NUR ---
PT AWAKE. NO C/O SOB. ALL NEEDS MET AT THIS TIME. CALL LIGHT WITHIN REACH.
--- NOTE | 2017-10-23 01:30 | NUR ---
PT REFUSED TO BE CLEANED AND TO CHANGE THE DRESSING ON HIS LEFT BUTTOCK. PT STATED THERE'S NO PROBLEM WITH HIS BUTTOCK.
[2017-10-23 04:00] VITALS: BP 154/56
--- NOTE | 2017-10-23 04:05 | NUR ---
PT SLEEPING BUT EASILY AROUSABLE. NO S/S OF DISTRESS. CALL LIGHT WITHIN REACH.
--- NOTE | 2017-10-23 06:20 | NUR ---
CHECKED BS 63. APPLE JUICE GIVEN. NO DISTRESS NOTED. WILL RECHECK BS.
--- NOTE | 2017-10-23 06:54 | NUR ---
CHECKED BS 100. NO C/O PAIN OR SOB. ALL NEEDS MET AT THIS TIME. CALL LIGHT WITHIN REACH.
[2017-10-23 06:58] LABS: ANION GAP 12.7 (8-16); CARBON DIOXIDE 24.3 mmol/L (21-32); CHLORIDE 101 mmol/L (98-107); GLUCOSE 83 mg/dL (74-106); SODIUM SERUM 134 mmol/L (136-145); UREA NITROGEN, BLOOD 53 mg/dL (7-18)
[2017-10-23] MEDS: ALBUTEROL SULFATE/IPRATROPIU 3 ML SOL IH PRN ×2 (06:58→23:46)
[2017-10-23] MEDS: NACL 0.9% 1,000 ML IV SCH ×2 (07:11→23:51)
--- NOTE | 2017-10-23 07:18 | NUR ---
ENDORSED PT TO DAY SHIFT NURSE. PT IN STABLE CONDITION.
--- NOTE | 2017-10-23 07:19 | NUR ---
RECEIVED REPORT FROM CONTRACT ADMINISTRATION COORDINATOR RN. PATIENT IS AAOX4, NO SIGNS AND SYMPTOMS OF ACUTE DISTRESS NOTED AT THIS TIME. PATIENT HAS IV TO RIGHT FOREARM 20G INFUSING NS AT 60ML/HR. SITE IS CLEAN, DRY, PATENT AND INTACT. DISCUSSED PLAN OF CARE WITH PATIENT AND HE VERBALIZED UNDERSTANDING. BED IN LOWEST POSITION, SIDE RAILS UP X2, ASSISTIVE DEVICE CANE AT THE FOOT OF THE BED, CALL LIGHT WITHIN REACH. WILL CONTINUE TO MONITOR.
--- NOTE | 2017-10-23 07:20 | NUR ---
RECEIVED CRITICAL LAB VALUE CREA 8.3. WILL PAGE DR. HOFFMAN
[2017-10-23 07:23] LABS: BASOPHILS # (AUTO) 0.1 K/uL (0.00-0.22); BASOPHILS % (AUTO) 2.6 % (0.0-2.0); EOSINOPHILS # (AUTO) 0.2 K/uL (0-0.4); EOSINOPHILS % (AUTO) 3.3 % (0.0-4.0); HEMATOCRIT 23.8 % (36-52); HEMOGLOBIN 7.8 g/dL (12.0-18.0); LYMPHOCYTES # (AUTO) 0.7 K/uL (2.0-11.5); LYMPHOCYTES % (AUTO) 14.5 % (20.5-51.1); MEAN CORPUSCULAR HEMOGLOBIN 30 pg (27-31); MEAN CORPUSCULAR HGB CONC 33 g/dL (33-37); MEAN CORPUSCULAR VOLUME 93 fL (80-94); MONOCYTES # (AUTO) 0.6 K/uL (0.8-1.0); MONOCYTES % (AUTO) 12.1 % (1.7-9.3); NEUTROPHILS # (AUTO) 3.6 K/uL (1.8-7.7); NEUTROPHILS % (AUTO) 67.5 % (42.2-75.2); PLATELET COUNT (AUTO) 118 K/uL (140-450); RED BLOOD CELL COUNT(AUTO) 2.57 MIL/uL (4.20-6.10); RED CELL DISTRIBUTION WIDTH 15.5 % (11.6-13.7); WHITE BLOOD COUNT (AUTO) 5.2 K/uL (4.8-10.8)
[2017-10-23 07:25] LABS: CREATININE 8.3 mg/dL (0.7-1.3)
--- NOTE | 2017-10-23 07:25 | NUR ---
PAGED DR. HOFFMAN. WAITING FOR CALL BACK.
[2017-10-23 07:38] LABS: MAGNESIUM 1.9 mg/dL (1.8-2.4); PHOSPHORUS 4.3 mg/dL (2.5-4.9)
[2017-10-23] MEDS: BLOOD GLUCOSE MONITORING 1 DEV DEV FS SCH ×4 (07:43→21:00)
--- NOTE | 2017-10-23 07:55 | NUR ---
SPOKE WITH DR HOFFMAN TO MAKE HIM AWARE OF PATIENTS LAB CREATININE 8.3. STATED PATIENT NEEDS TO BE ON DIALYSIS. INFORMED HIM THAT THERE IS NO ORDER FOR DIALYSIS AT THIS TIME IN WHICH HE STATED THAT THERE IS AND NOT TO WORRY ABOUT IT. LET CHARGE NURSE DARIO KNOW.
[2017-10-23 08:00] VITALS: BP 154/60
--- NOTE | 2017-10-23 08:20 | NUR ---
DIALYSIS NURSE CAME, PATIENT REFUSED TO GET DIALYSIS AT THIS TIME BECAUSE HE IS UNDER THE IMPRESSION THAT HIM AND DR HOFFMAN HAD AN AGREEMENT THAT DR HOFFMAN WOULD COME IN AND OVER SEE THE WHOLE DIALYSIS. EXPLAINED TO PATIENT THAT IT IS AN RN THAT IS COMING TO DO THE DIALYSIS. PATIENT WON'T CONTINUE UNTIL HIS SON IS HERE.
[2017-10-23] MEDS: FUROSEMIDE 20 MG/2 ML VIAL IVP SCH ×3 (09:00→21:09)
[2017-10-23] MEDS: METOPROLOL SUCCINATE 50 MG TABER PO SCH (09:00)
[2017-10-23] MEDS: hydrALAZINE 25 MG TAB PO SCH ×2 (09:00→21:10)
[2017-10-23] MEDS: FOAM DRESSING TP SCH (09:00)
[2017-10-23] MEDS: TAMSULOSIN 0.4 MG CAP PO SCH (09:02)
[2017-10-23] MEDS: ALLOPURINOL 100 MG TAB PO SCH (09:03)
[2017-10-23] MEDS: CALCIUM ACETATE 667 MG TAB PO SCH ×3 (09:03→17:16)
[2017-10-23] MEDS: SENNA 8.6 MG TAB PO SCH (09:03)
[2017-10-23] MEDS: SODIUM BICARBONATE 650 MG TAB PO SCH ×3 (09:03→17:16)
[2017-10-23] MEDS: PANTOPRAZOLE 40 MG INJ VIAL IVP SCH (09:03)
--- NOTE | 2017-10-23 09:40 | NUR ---
SON KATELIN IS HERE AND CLARIFIED TO HIM THAT DR HOFFMAN WON'T BE DOING THE DIALYSIS, THAT THERE ARE NURSES WHO DO THE DIALYSIS. THEY WERE JUST CONCERNED IF SOMETHING WERE TO HAPPEN DURING THE DIALYSIS THAT THERE WAS A PHYSICIAN ON THE UNIT. REASSURED THEM IF ANY THING WERE TO HAPPEN WE HAVE PROTOCOLS, CODE BLUE, RAPID RESPONSE, AND THAT ER DOCTORS COME TO ASSESS THE PATIENT. THEY UNDERSTAND AND WILL CONTINUE WITH DIALYSIS.
[2017-10-23] MEDS ORDERED: VANCOMYCIN 1GM/DEXT 5% PREMIX 200 ML IV SCH (11:00)
[2017-10-23 12:00] VITALS: BP 149/54
--- NOTE | 2017-10-23 13:00 | NUR ---
PATIENT DIDN'T WANT ME TO PERFORM WOUND CARE SAYING THAT HE HAS NO WOUND.
--- NOTE | 2017-10-23 13:55 | NUR ---
DIALYSIS NURSE IS BACK. PATIENTS SON KATELIN WANTED ME TO CALL HIM SOON DIALYSIS NURSE WAS HERE. WILL CALL HIM TO INFORM HIM.
[2017-10-23 16:00] VITALS: BP 132/46
--- NOTE | 2017-10-23 17:20 | NUR ---
DIALYSIS IS FINISHED, 2.5L WERE TAKEN OUT.
--- NOTE | 2017-10-23 19:25 | NUR ---
ENDORSED PATIENT TO GOGGLES ASSEMBLER RN FOR CONTINUITY OF CARE. PATIENT IN STABLE CONDITION.
--- NOTE | 2017-10-23 19:26 | NUR ---
RECEIVED REPORT FROM DAY SHIFT NURSE. AAOX4. NO DISTRESS NOTED. IV TO RIGHT FA #20G, NS AT 60 ML/HR, INFUSING WELL. RIGHT IJ WITH DRESSING CLEAN, DRY AND INTACT. NO C/O PAIN. DISCUSSED PLAN OF CARE, PT VERBALIZED UNDERSTANDING. FALL PRECAUTION IN PLACE. CALL LIGHT WITHIN REACH. WILL CONTINUE TO MONITOR.
[2017-10-23 20:00] VITALS: BP 144/64
[2017-10-23] MEDS: DOCUSATE SODIUM 100 MG GELCAP PO SCH (21:10)
--- NOTE | 2017-10-23 21:13 | NUR ---
PT REFUSED LASIX IVP. PT STATED HE DOESN'T WANT TO ALWAYS GO TO THE BATHROOM TO URINATE.
--- NOTE | 2017-10-23 21:15 | NUR ---
DUE MEDS GIVEN. PT TOLERATED WELL. PROMOTIONAL ADVERTISING ASSISTANT ASSISTED PT TO THE BATHROOM AND BACK TO BED. NO C/O SOB OR PAIN. ALL NEEDS MET AT THIS TIME. CALL LIGHT WITHIN REACH.
--- NOTE | 2017-10-23 23:37 | NUR ---
PT STATED HE NEEDS BREATHING TREATMENT. O2 SAT 96% ON ROOM AIR. CALLED RT FOR BREATHING TREATMENT.
[2017-10-24] VITALS: BP 124/48
--- NOTE | 2017-10-24 00:30 | NUR ---
CALLED DR. Louie BOLIVAR ([phone]), HE IS COVERING FOR DR. Nya BOLIVAR. MADE AWARE OF PT'S BP 124/48. SAID IT'S JUST OKAY.
[2017-10-24] MEDS: HYDRAGUARD CREAM TP SCH ×2 (01:00→13:00)
[2017-10-24] MEDS: MILD SOAP AND WATER TP SCH ×2 (01:00→13:00)
--- NOTE | 2017-10-24 01:50 | NUR ---
PT REFUSED TO HAVE HIS LEFT BUTTOCK CLEANED AND CHANGE DRESSING. PT STATED HE WANTS TO SLEEP.
[2017-10-24 04:00] VITALS: BP 144/57
--- NOTE | 2017-10-24 04:35 | NUR ---
PT SLEEPING BUT EASILY AROUSABLE. NO S/S OF DISTRESS. SAFETY PRECAUTION IN PLACE. CALL LIGHT WITHIN REACH.
[2017-10-24 06:26] LABS: BASOPHILS # (AUTO) 0.1 K/uL (0.00-0.22); BASOPHILS % (AUTO) 1.1 % (0.0-2.0); EOSINOPHILS # (AUTO) 0.2 K/uL (0-0.4); EOSINOPHILS % (AUTO) 5.2 % (0.0-4.0); HEMATOCRIT 22.8 % (36-52); HEMOGLOBIN 7.6 g/dL (12.0-18.0); LYMPHOCYTES % (AUTO) 21.5 % (20.5-51.1); MEAN CORPUSCULAR HEMOGLOBIN 30 pg (27-31); MEAN CORPUSCULAR HGB CONC 33 g/dL (33-37); MEAN CORPUSCULAR VOLUME 91 fL (80-94); MONOCYTES # (AUTO) 0.7 K/uL (0.8-1.0); MONOCYTES % (AUTO) 14.6 % (1.7-9.3); NEUTROPHILS # (AUTO) 2.6 K/uL (1.8-7.7); NEUTROPHILS % (AUTO) 57.6 % (42.2-75.2); PLATELET COUNT (AUTO) 110 K/uL (140-450); RED BLOOD CELL COUNT(AUTO) 2.51 MIL/uL (4.20-6.10); RED CELL DISTRIBUTION WIDTH 15.9 % (11.6-13.7); WHITE BLOOD COUNT (AUTO) 4.6 K/uL (4.8-10.8)
[2017-10-24 06:57] LABS: ANION GAP 11.4 (8-16); ASPARTATE AMINOTRANSFERASE 15 U/L (15-37); CARBON DIOXIDE 26.1 mmol/L (21-32); CHLORIDE 103 mmol/L (98-107); GLUCOSE 90 mg/dL (74-106); MAGNESIUM 1.7 mg/dL (1.8-2.4); PHOSPHORUS 3.6 mg/dL (2.5-4.9); POTASSIUM 3.5 mmol/L (3.5-5.1); SODIUM SERUM 137 mmol/L (136-145); TOTAL BILIRUBIN 0.5 mg/dL (0.0-1.0); UREA NITROGEN, BLOOD 27 mg/dL (7-18)
[2017-10-24 07:01] LABS: CREATININE 5.5 mg/dL (0.7-1.3)
--- NOTE | 2017-10-24 07:01 | NUR ---
RECEIVED CRITICAL LAB VALUE CREA 5.5, BUN 27, TRENDING DOWN.
--- NOTE | 2017-10-24 07:05 | NUR ---
ENDORSED PT TO DAY SHIFT NURSE. PT IN STABLE CONDITION.
--- NOTE | 2017-10-24 07:06 | NUR ---
RECEIVED REPORT FROM WIRE HARNESS DESIGN ENGINEER NURSE AT BEDSIDE FOR CONTINUITY OF CARE. PATIENT SLEEPING, NO DISTRESS NOTED. IV TO RIGHT FA #20G, NS AT 60 ML/HR, INFUSING WELL. RIGHT IJ WITH DRESSING CLEAN, DRY AND INTACT. NO C/O PAIN AT THIS TIME. SAFETY AND ISOLATION PRECAUTION IN PLACE. CALL LIGHT WITHIN REACH. WILL CONTINUE TO MONITOR PATIENT.
[2017-10-24] MEDS: BLOOD GLUCOSE MONITORING 1 DEV DEV FS SCH ×4 (07:48→20:56)
[2017-10-24 08:00] VITALS: BP 145/59
[2017-10-24] MEDS: TAMSULOSIN 0.4 MG CAP PO SCH (09:28)
[2017-10-24] MEDS: hydrALAZINE 25 MG TAB PO SCH ×2 (09:28→20:53)
[2017-10-24] MEDS: SENNA 8.6 MG TAB PO SCH (09:28)
[2017-10-24] MEDS: CALCIUM ACETATE 667 MG TAB PO SCH ×3 (09:28→17:23)
[2017-10-24] MEDS: METOPROLOL SUCCINATE 50 MG TABER PO SCH (09:28)
[2017-10-24] MEDS: ALLOPURINOL 100 MG TAB PO SCH (09:28)
[2017-10-24] MEDS: SODIUM BICARBONATE 650 MG TAB PO SCH ×3 (09:28→17:23)
[2017-10-24] MEDS: FUROSEMIDE 20 MG/2 ML VIAL IVP SCH ×2 (09:29→21:22)
[2017-10-24] MEDS: PANTOPRAZOLE 40 MG INJ VIAL IVP SCH (09:29)
--- NOTE | 2017-10-24 09:29 | NUR ---
ADMINISTERED ORDERED MEDICATIONS. PATIENT TOLERATED THEM WELL. PATIENT DENIES PAIN, NO SIGNS OF DISTRESS OR SOB NOTED. SAFETY PRECAUTION IN PLACE, CALL LIGHT WITHIN REACH, WILL CONTINUE TO MONITOR PATIENT.
--- NOTE | 2017-10-24 09:38 | NUR ---
ADMINISTERED ORDERED MEDICATIONS. PATIENT TOLERATED THEM WELL. PATIENT RESTING IN BED. NO SIGNS OF DISTRESS OR SOB NOTED. BREATHING EVEN AND UNLABORED. PATIENT DENIES PAIN. SAFETY AND ISOLATION PRECAUTION IN PLACE, CALL LIGHT WITHIN REACH. WILL CONTINUE TO MONITOR PATIENT. Addendum: 10/24/17 at 1501 by Juni Bradley RN WRONG TIME, DUPLICATE ENTRY.
[2017-10-24] MEDS ORDERED: VANCOMYCIN 1GM/DEXT 5% PREMIX 200 ML IV SCH (10:00)
[2017-10-24] MEDS: ALBUTEROL SULFATE/IPRATROPIU 3 ML SOL IH PRN ×2 (11:47→19:25)
[2017-10-24 12:00] VITALS: BP 124/44
[2017-10-24 12:15] LABS: HEPATITIS A ANTIBODY IGM Negative (Negative); HEPATITIS B SURFACE ANTIBODY Reactive (.); HEPATITIS B SURFACE ANTIGEN Negative (Negative)
--- NOTE | 2017-10-24 12:55 | NUR ---
ADMINISTERED ORDERED MEDICATIONS. PATIENT TOLERATED THEM WELL. PATIENT DENIES PAIN, NO SIGNS OF DISTRESS OR SOB NOTED. DAUGHTER AND AT BEDSIDE. SAFETY PRECAUTION IN PLACE, CALL LIGHT WITHIN REACH, WILL CONTINUE TO MONITOR PATIENT.
--- NOTE | 2017-10-24 13:12 | NUR ---
MARVA NOTE CALLED ERICKA, MEDIA LAW FACULTY MEMBER FOR [facility] (C:[phone]) RE. OUTPATIENT SET UP. OFF TODAY AND WILL BE BACK TOMORROW.
--- NOTE | 2017-10-24 13:55 | NUR ---
CM NOTE CONCURRENT REVIEW FOR CRITERIA DONE
--- NOTE | 2017-10-24 14:52 | NUR ---
SON AND FRIEND IN TO SEE THE PATIENT. PATIENT IS RESTING IN BED. NO SIGNS OF DISTRESS OR SOB NOTED. PATIENT DENIES PAIN. SAFETY AND ISOLATION PRECAUTION IN PLACE, CALL LIGHT WITHIN REACH. WILL CONTINUE TO MONITOR PATIENT.
[2017-10-24 16:00] VITALS: BP 145/56
[2017-10-24] MEDS: NACL 0.9% 1,000 ML IV SCH (16:31)
[2017-10-24] MEDS: LEVOFLOXACIN 500 MG/D5W PREMIX 100 ML IV SCH (17:23)
[2017-10-24 17:26] LABS: HEPATITIS B CORE AB TOTAL POSITIVE (NEGATIVE)
--- NOTE | 2017-10-24 18:40 | NUR ---
PATIENT SITTING UP IN BED, EATING DINNER. NO SIGNS OF DISTRESS OR SOB NOTED. SAFETY AND ISOLATION PRECAUTION IN PLACE, CALL LIGHT WITHIN REACH. WILL CONTINUE TO MONITOR PATIENT.
--- NOTE | 2017-10-24 19:09 | NUR ---
GAVE REPORT TO RELIGION DEPARTMENT CHAIR RN AT BEDSIDE FOR CONTINUITY OF CARE. PATIENT IN STABLE CONDITION.
--- NOTE | 2017-10-24 19:10 | NUR ---
RECD. RESTING IN BED, AWAKE, A/OX4. RESPIRATION EVEN AND UNLABORED. ON AT 2 LITERS VIA N/C, 02 SAT - 100%. IV OF NS AT 60 ML/HR INFUSING, RIGHT FOREARM G20. WITH RIGHT IJ CATH FOR DIALYSIS, SITE DRY, INTACT. PLAN OF CARE FOR THE SHIFT DISCUSSED. VERBALIZE UNDERSTANDING. ON BILATERAL LEG SEQUENTIALS. SAFETY MEASURES ENFORCED. CALL LIGHT IN REACH. DENIES PAIN 0/10.
--- NOTE | 2017-10-24 19:11 | NUR ---
Patient's Plan of Care was discussed and reviewed with SOFTWARE RECRUITER: DALE VALENZUELA
[2017-10-24 20:00] VITALS: BP 131/64
[2017-10-24] MEDS: DOCUSATE SODIUM 100 MG GELCAP PO SCH (20:56)
--- NOTE | 2017-10-24 21:00 | NUR ---
DUE PO MEDICATIONS AND SNACK GIVEN.
--- NOTE | 2017-10-24 22:00 | NUR ---
ASSISTED TO BR TO HAVE BM BUT UNABLE TO HAVE ONE.
--- NOTE | 2017-10-24 23:00 | NUR ---
PRUNE JUICE GIVEN AND WATER.
[2017-10-25] VITALS: BP 138/69
[2017-10-25] MEDS: MILD SOAP AND WATER TP SCH ×2 (01:00→13:00)
[2017-10-25] MEDS: HYDRAGUARD CREAM TP SCH ×2 (01:00→13:00)
[2017-10-25 04:00] VITALS: BP 136/66
--- NOTE | 2017-10-25 04:00 | NUR ---
SLEEPING COMFORTABLY IN BED.
[2017-10-25] MEDS: BLOOD GLUCOSE MONITORING 1 DEV DEV FS SCH ×4 (06:07→21:53)
--- NOTE | 2017-10-25 06:30 | NUR ---
HAD MEDIUM SOFT BM, ASSISTED BY [employer] WORKFLOW CONSULTANT TO CLEAN SELF AND BACK TO BED, SAFETY MAINTAINED.
--- NOTE | 2017-10-25 07:00 | NUR ---
CONDITION REMAIN STABLE. WILL ENDORSE TO AM NURSE FOR CONTINUITY OF CARE.
--- NOTE | 2017-10-25 07:01 | NUR ---
RECEIVED REPORT FROM FUR SCRAPER NURSE AT BEDSIDE FOR CONTINUITY OF CARE. PATIENT AWAKE AND ALERT. NO DISTRESS NOTED. INTRODUCED MYSELF AND UPDATED THE BOARD. IV TO RIGHT FA #20G, NS AT 60 ML/HR, INFUSING WELL. RIGHT IJ WITH DRESSING CLEAN, DRY AND INTACT. NO C/O PAIN AT THIS TIME. SAFETY AND ISOLATION PRECAUTION IN PLACE. CALL LIGHT WITHIN REACH. WILL CONTINUE TO MONITOR PATIENT.
[2017-10-25] MEDS: ALBUTEROL SULFATE/IPRATROPIU 3 ML SOL IH PRN ×2 (07:40→22:02)
[2017-10-25 08:00] VITALS: BP 150/72
[2017-10-25] MEDS: ALLOPURINOL 100 MG TAB PO SCH (08:25)
[2017-10-25] MEDS: SODIUM BICARBONATE 650 MG TAB PO SCH ×3 (08:25→16:47)
[2017-10-25] MEDS: TAMSULOSIN 0.4 MG CAP PO SCH (08:25)
[2017-10-25] MEDS: hydrALAZINE 25 MG TAB PO SCH ×2 (08:25→21:53)
[2017-10-25] MEDS: CALCIUM ACETATE 667 MG TAB PO SCH ×3 (08:26→16:47)
[2017-10-25] MEDS: PANTOPRAZOLE 40 MG INJ VIAL IVP SCH (08:26)
[2017-10-25] MEDS: METOPROLOL SUCCINATE 50 MG TABER PO SCH (08:26)
[2017-10-25] MEDS: FUROSEMIDE 20 MG/2 ML VIAL IVP SCH ×2 (08:26→21:00)
[2017-10-25] MEDS: SENNA 8.6 MG TAB PO SCH (08:26)
--- NOTE | 2017-10-25 08:26 | NUR ---
ADMINISTERED ORDERED MEDICATIONS. PATIENT TOLERATED THEM WELL. NO SIGNS OF DISTRESS OR SOB NOTED. BREATHING EVEN, SHALLOW, AND LABORED. PULSE OX AT 100% ON ROOM AIR. CALLED RT FOR ASSESSMENT. RT STATED THAT PATIENT WAS IN SIMILAR CONDITION DURING HIS BREATHING TREATMENT THIS AM. SAFETY AND ISOLATION PRECAUTION IN PLACE, BED ON LOWEST SETTING, BED ALARM ON, CALL LIGHT WITHIN REACH. WILL CONTINUE TO MONITOR PATIENT.
[2017-10-25] MEDS: FOAM DRESSING TP SCH (09:00)
[2017-10-25] MEDS: NACL 0.9% 1,000 ML IV SCH ×2 (09:11→17:21)
--- NOTE | 2017-10-25 09:30 | NUR ---
PATIENT RESTING IN BED, REQUESTED TO HAVE SCDS ON. BREATHING EVEN AND UNLABORED. NO SIGNS OF DISTRESS OR SOB NOTED. SAFETY AND ISOLATION PRECAUTION IN PLACE, BED ON LOWEST SETTING, BED ALARM ON, CALL LIGHT WITHIN REACH. WILL CONTINUE TO MONITOR PATIENT.
--- NOTE | 2017-10-25 09:57 | NUR ---
SPOKE WITH ERICKA FROM [facility]. HE SAID TO FAX THE INFORMATION TO HIM AT [phone], INCLUDING [facility]. I FAXED INFORMATION TO HIM. PHONE ERICKA, CELL [phone] PHONE TO [facility] [phone]
--- NOTE | 2017-10-25 10:00 | NUR ---
PATIENT RESTING IN BED, REQUESTED TO HAVE SCDS TAKEN OFF. BREATHING EVEN AND UNLABORED. NO SIGNS OF DISTRESS OR SOB NOTED. SAFETY AND ISOLATION PRECAUTION IN PLACE, BED ON LOWEST SETTING, BED ALARM ON, CALL LIGHT WITHIN REACH. WILL CONTINUE TO MONITOR PATIENT.
[2017-10-25 12:00] VITALS: BP 126/59
--- NOTE | 2017-10-25 12:00 | NUR ---
I spoke to Patient's son Danis Gross in regards to casework supervisor Angela coordinating and arranging for patient to get Dialysis scheduled at [facility] on Tuesdays, , and Saturdays at about 2:00pm. Mr. Danis Gross was on agreement for the time and place however; stated that he was told by MD that Patient will only receive Dialysis 2 times a week and not 3 times. I Informed him that these typewriter tester will give information to casework supervisor. He agreed and thank me for my assistance. Addendum: 10/26/17 at 0934 by Cassandra Haddad CM Civil Engineering Technician note addendum: I spoke to Patient's son Danis Gross in regards to Dialysis transportation and schedule. I explained to Danis Gross that dialysis is been in the process of getting coordinated and arranged for patient by casework supervisor Angela, I ask him if transportation will be provided by him or family and I let him know that possible time available for Dialysis is 2:00pm at [facility] on Tuesdays, , and Saturdays. Mr. Danis Gross stated "Yes, My family will take my father to his appointments and if they are not able I will send my personal care attendant to drop him off and that time will work well with my family" After stated that he was on agreement for the time. Mr. Danis Gross let me know that according to a previous conversation he had with MD. He was told by MD that Patient will only receive Dialysis 2 times a week and not 3 times. I Informed him that these typewriter tester will give information to casework supervisor and will coordinate with MD on getting the recommended treatment orders in place. He agreed and thank me for my assistance.
--- NOTE | 2017-10-25 12:41 | NUR ---
ADMINISTERED ORDERED MEDICATIONS. PATIENT TOLERATED IT WELL. PATIENT EATING LUNCH. AT BEDSIDE. NO SIGNS OF DISTRESS NOTED. SAFETY PRECAUTION IN PLACE, CALL LIGHT WITHIN REACH. WILL CONTINUE TO MONITOR PATIENT.
--- NOTE | 2017-10-25 13:15 | NUR ---
PAGED DR. HOFFMAN ABOUT PATIENT'S LABS FOR PENDING HEMODIALYSIS. WILL WAIT CALL BACK.
--- NOTE | 2017-10-25 13:20 | NUR ---
DR. HOFFMAN CALLED BACK. HE IS AWARE OF PATIENT'S LABS FROM 10/23. NO NEW ORDERS FOR LAB ENTERED. PATIENT RESTING IN BED, AT BEDSIDE. NO SIGNS OF DISTRESS NOTED. SAFETY PRECAUTION IN PLACE, CALL LIGHT WITHIN REACH. WILL CONTINUE TO MONITOR PATIENT.
--- NOTE | 2017-10-25 13:30 | NUR ---
PATIENT AMBULATED TO BATHROOM WITH HIS CANE WITH STANDBY ASSIST FROM MACHINE BANDER AND CELLOPHANER HELPER. PATIENT VOIDED AND HAD A SMALL BOWEL MOVEMENT. NO SIGNS OF DISTRESS OR SOB NOTED. SAFETY AND ISOLATION PRECAUTION IN PLACE, CALL LIGHT WITHIN REACH. WILL CONTINUE TO MONITOR PATIENT.
--- NOTE | 2017-10-25 13:44 | NUR ---
RECEIVED A CALL FROM ERICKA AT [facility]. HE WAS INFORMED EARLIER THAT THE SON SAID THAT DR. HOFFMAN TOLD THE SON THAT HE ONLY NEEDED DIALYSIS 2X PER WEEK. ERICKA SAID HE SPOKE WITH DR. HOFFMAN AND WAS TOLD THAT THE DIALYSIS WILL BE 2X A WEEK. THE PATIENT WILL START ON Tuesday10/27/17 AT [facility], [address] [place] [address]. PHONE [phone]. HIS CHAIR TIME WILL BE 2P.M., BUT HE HAS TO BE THERE AT 1P.M. ON TUESDAY TO ALSO SIGN PAPERS. HIS SCHEDULE THEN WILL BE TUESDAY AND TUESDAY AT 1P.M. DARIO MASTERSORDER PROCESSING CLERK NURSE AWARE.
--- NOTE | 2017-10-25 15:05 | NUR ---
PHYSICAL THERAPY IN WITH PATIENT. AT BEDSIDE. PATIENT SHOWS NO SIGNS OF DISTRESS OR SOB. PATIENT DENIES PAIN. SAFETY AND ISOLATION PRECAUTION PRECAUTION IN PLACE, WILL CONTINUE TO MONITOR PATIENT.
--- NOTE | 2017-10-25 15:20 | NUR ---
PATIENT RESTING IN BED, NO SIGNS OF DISTRESS NOTED. SON KATELIN REQUESTED UPDATE ON PATIENT'S STATUS. UPDATED HIM ON PLAN OF CARE, HE VERBALIZED UNDERSTANDING. SAFETY AND ISOLATION PRECAUTION IN PLACE, CALL LIGHT WITHIN REACH. WILL CONTINUE TO MONITOR PATIENT.
--- NOTE | 2017-10-25 15:31 | NUR ---
10/25/17 RD FOLLOW UP COMPLETED. PLEASE REFER TO NUTRITION ASSESSMENT UNDER CARE ACTIVITY FOR ESTIMATED NUTRITIONAL NEEDS. CONTINUE CURRENT DIET MEDICALLY APPROPRIATE. IF/WHEN MEDICALLY APPRORIATE, PO INTAKE INCREASES CONSIDER INITIATING DIET OF CCHO 60 GM DUE TO HX DM. RD TO FOLLOW-UP IN 2-3 DAYS; PATIENT IS HIGH RISK. RD TO FOLLOW-UP IN 3-5 DAYS PATIENT IS MODERATE RISK. ANGELA HOUSTON, RD
[2017-10-25 16:00] VITALS: BP 140/56
--- NOTE | 2017-10-25 16:47 | NUR ---
ADMINISTERED ORDERED MEDICATIONS. PATIENT TOLERATED IT WELL. PATIENT RESTING IN BED, AT BEDSIDE. NO SIGNS OF DISTRESS NOTED. SAFETY PRECAUTION IN PLACE, CALL LIGHT WITHIN REACH. WILL CONTINUE TO MONITOR PATIENT.
--- NOTE | 2017-10-25 17:42 | NUR ---
PHYSICAL THERAPY CO-SIGN The Physical Therapy Progress Notes documented by Lo[facility] have been reviewed. Reviewed/Co-Signed by: Sarah Burris PT Documentation Done by: JACKI CASTILLO PTA, DC FROM [facility] DUE TO HAVING MET GOALS, ENDORSED TO NRSG AND ENCOURAGE AMBULATION EVEN WITH FAMILY PRESENT. Addendum: 10/25/17 at 1742 by Sarah Burris PT Amended: Links added.
--- NOTE | 2017-10-25 17:55 | NUR ---
PATIENT EATING DINNER. UPDATED HIM ON HEMODIALYSIS THIS PM. PATIENT VERBALIZED UNDERSTANDING. NO SIGNS OF DISTRESS NOTED. SAFETY PRECAUTION IN PLACE, CALL LIGHT WITHIN REACH. WILL CONTINUE TO MONITOR PATIENT.
--- NOTE | 2017-10-25 19:05 | NUR ---
REPORT GIVEN TO PROBATION SUPERVISOR NURSE AT BEDSIDE FOR CONTINUITY OF CARE. PATIENT IN STABLE CONDITION.
--- NOTE | 2017-10-25 19:06 | NUR ---
RECD. RESTING IN BED, AWAKE, A/OX4. RESPIRATION EVEN AND UNLABORED. IV OF NS AT 60 ML/HR INFUSING, RIGHT FOREARM G20. DIALYSIS LINE AT THE UPPER RIGHT CHEST, PERMA CATH WITH DRESSING DRY AND INTACT. CONVERSING WITH DAUGHTER AT THE BEDSIDE. PLAN OF CARE FOR THE SHIFT DISCUSSED. VERBALIZED UNDERSTANDING. DENIES PAIN 0/10. SAFETY MEASURES ENFORCED. WAITING FOR DIALYSIS NURSE TO DO DIALYSIS.
[2017-10-25 20:00] VITALS: BP 133/54
--- NOTE | 2017-10-25 20:00 | NUR ---
Patient's Plan of Care was discussed and reviewed with MANAGER COMPETITIVE INTELLIGENCE: SUSAN HODGES.
--- NOTE | 2017-10-25 20:08 | NUR ---
PT IS IN DIALYSIS AT THIS TIME, NO SOB OR ANY RESP DISTRESS NOTED
--- NOTE | 2017-10-25 21:00 | NUR ---
SON ANIVAL IS QUESTIONING WHY NO LABS WAS DONE TODAY. WANTS TO SPEAK WITH ATTENDING PHYSICIAN. PAGED DR. BOLIVAR TWICE BY CHARGE NURSE TIANNA.
[2017-10-25] MEDS: DOCUSATE SODIUM 100 MG GELCAP PO SCH (21:52)
--- NOTE | 2017-10-25 21:57 | NUR ---
DIALYSIS STILL ON-GOING, DIALYSIS NURSE AND DAUGHTER AT THE BEDSIDE. INFORMED RT PATIENT WANTS A BREATHING TX.
--- NOTE | 2017-10-25 22:15 | NUR ---
BREATHING TX GIVEN BY RT.
--- NOTE | 2017-10-25 23:20 | NUR ---
CHARGE NURSE TIANNA SPOKE WITH DR. BOLIVAR, INFORMED PATIENT SON QUESTIONING WHY NO LAB WAS ORDERED BEFORE DIALYSIS. DAILY LABS ORDERED TILL OCTOBER 27, 2017. DAUGHTER AT THE BEDSIDE MADE AWARE LABS ORDERED.
--- NOTE | 2017-10-25 23:30 | NUR ---
DIALYSIS FINISHED, ABLE TO TAKE OUT 1 LITER PER REPORT OF DIALYSIS NURSE.
[2017-10-26] VITALS: BP 122/77
[2017-10-26] MEDS: HYDRAGUARD CREAM TP SCH ×3 (01:00→12:55)
[2017-10-26] MEDS: MILD SOAP AND WATER TP SCH ×3 (01:00→12:55)
--- NOTE | 2017-10-26 01:00 | NUR ---
DAUGHTER LEFT, PATIENT SLEEPING COMFORTABLY IN BED.
[2017-10-26 04:00] VITALS: BP 146/47
--- NOTE | 2017-10-26 04:00 | NUR ---
STILL SLEEPING COMFORTABLY IN BED. NO DISTRESS NOTED.
[2017-10-26 06:35] LABS: BASOPHILS # (AUTO) 0.1 K/uL (0.00-0.22); EOSINOPHILS # (AUTO) 0.2 K/uL (0-0.4); HEMOGLOBIN 7.4 g/dL (12.0-18.0); MONOCYTES # (AUTO) 0.6 K/uL (0.8-1.0)
[2017-10-26 06:48] LABS: BASOPHILS % (AUTO) 2.6 % (0.0-2.0); EOSINOPHILS % (AUTO) 4.9 % (0.0-4.0); HEMATOCRIT 22.7 % (36-52); LYMPHOCYTES # (AUTO) 0.9 K/uL (2.0-11.5); LYMPHOCYTES % (AUTO) 22.5 % (20.5-51.1); MEAN CORPUSCULAR HEMOGLOBIN 30 pg (27-31); MEAN CORPUSCULAR HGB CONC 33 g/dL (33-37); MEAN CORPUSCULAR VOLUME 92 fL (80-94); MONOCYTES % (AUTO) 13.1 % (1.7-9.3); NEUTROPHILS # (AUTO) 2.4 K/uL (1.8-7.7); NEUTROPHILS % (AUTO) 56.9 % (42.2-75.2); PLATELET COUNT (AUTO) 116 K/uL (140-450); RED BLOOD CELL COUNT(AUTO) 2.48 MIL/uL (4.20-6.10); RED CELL DISTRIBUTION WIDTH 16.1 % (11.6-13.7); WHITE BLOOD COUNT (AUTO) 4.2 K/uL (4.8-10.8)
--- NOTE | 2017-10-26 07:00 | NUR ---
CONDITION REMAIN STABLE. NO BM THIS SHIFT. ALL NEEDS ATTENDED. WILL ENDORORSE TO AM NURSE FOR CONTINUITY OF CARE.
--- NOTE | 2017-10-26 07:05 | NUR ---
RECEIVED REPORT FROM TELE MARKETING EXECUTIVE NURSE, PT IS RESTING IN BED IN SEMI FOWLERS POSITION, PT IS AAOX4, AMBULATES WITH ASSIST, PT HAS IV ON HIS RT FA, PATENT, INTACT, FLUSHING WELL, PT HAS DIALYSIS ACCESS ON RIGHT UPPER CHEST, PT IS HARD OF HEARING, NO S/S OF RESPIRATORY DISTRESS OR DISCOMFORT NOTED, DISCUSSED PLAN OF CARE WITH PT, PT VERBALIZED UNDERSTANDING, SAFETY/FALL PRECAUTIONS ARE IN PLACE, CALL LIGHT IS WITHIN REACH, WILL CONTINUE TO MONITOR.
[2017-10-26 07:12] LABS: ANION GAP 9.6 (8-16); CARBON DIOXIDE 30.9 mmol/L (21-32); CHLORIDE 105 mmol/L (98-107); CREATININE 3.7 mg/dL (0.7-1.3); GLUCOSE 87 mg/dL (74-106); POTASSIUM 3.5 mmol/L (3.5-5.1); SODIUM SERUM 142 mmol/L (136-145); UREA NITROGEN, BLOOD 13 mg/dL (7-18)
[2017-10-26] MEDS: BLOOD GLUCOSE MONITORING 1 DEV DEV FS SCH ×2 (07:30→11:30)
[2017-10-26 08:00] VITALS: BP 149/62
[2017-10-26] MEDS: SODIUM BICARBONATE 650 MG TAB PO SCH ×2 (08:47→13:00)
[2017-10-26] MEDS: TAMSULOSIN 0.4 MG CAP PO SCH (08:47)
[2017-10-26] MEDS: SENNA 8.6 MG TAB PO SCH (08:48)
[2017-10-26] MEDS: METOPROLOL SUCCINATE 50 MG TABER PO SCH (08:48)
[2017-10-26] MEDS: CALCIUM ACETATE 667 MG TAB PO SCH ×2 (08:48→13:00)
[2017-10-26] MEDS: hydrALAZINE 25 MG TAB PO SCH (08:48)
[2017-10-26] MEDS: FUROSEMIDE 20 MG/2 ML VIAL IVP SCH (08:49)
[2017-10-26] MEDS: ALLOPURINOL 100 MG TAB PO SCH (08:49)
[2017-10-26] MEDS: PANTOPRAZOLE 40 MG INJ VIAL IVP SCH (08:49)
--- NOTE | 2017-10-26 08:49 | NUR ---
DUE MEDICATIONS GIVEN, PT TOLERATED WELL, CALL LIGHT WITHIN REACH, WILL CONTINUE TO MONITOR.
--- NOTE | 2017-10-26 11:30 | NUR ---
PT SLEEPING IN BED AT THIS TIME, PT IS ON ROOM AIR, NO S/S OF RESPIRATORY DISTRESS OR DISCOMFORT NOTED, CALL LIGHT IS WITHIN REACH.
[2017-10-26 12:00] VITALS: BP 132/50
[2017-10-26] MEDS ORDERED: VANCOMYCIN 1GM/DEXT 5% PREMIX 200 ML IV SCH (12:00)
--- NOTE | 2017-10-26 13:03 | NUR ---
PT REFUSED SKIN CARE AT THIS TIME. WILL ATTEMPT AGAIN LATER AFTER HIS NAP.
[2017-10-26] MEDS ORDERED: ALLO100T21 PO (13:08)
[2017-10-26] MEDS ORDERED: TAMS0.4C96 PO (13:08)
[2017-10-26] MEDS ORDERED: HYDR-4420 PO (13:08)
[2017-10-26] MEDS ORDERED: METO50TE2 PO (13:08)
[2017-10-26] MEDS ORDERED: LEVO750T2 PO (13:08)
[2017-10-26] MEDS ORDERED: DOCU-299 PO (13:08)
[2017-10-26] MEDS ORDERED: PHO667 PO (13:08)
[2017-10-26] MEDS ORDERED: SODI650T2 PO (13:08)
[2017-10-26] MEDS: ALBUTEROL SULFATE/IPRATROPIU 3 ML SOL IH PRN (14:11)
--- NOTE | 2017-10-26 16:00 | NUR ---
PATIENT'S IV REMOVED, CATHETER TIP INTACT, ID WRIST BAND REMOVED.
--- NOTE | 2017-10-26 16:05 | NUR ---
PATIENT REFUSED FLU VACCINE. PT SAID HE JUST WANTED TO GO HOME.
--- NOTE | 2017-10-26 18:04 | NUR ---
DISCHARGE INSTRUCTIONS GIVEN TO THE PATIENT'S SON KATELIN, KATELIN WAS PROVIDED WITH THE ADDRESS, PHONE NUMBER AND TIME FOR THE PATIENT'S DIALYSIS APPOINTMENT TOMORROW. HE WAS ALSO INSTRUCTED TO FOLLOW WITH DR. Louie BOLIVAR IN 2 WEEKS, WITH DR. GOLDEN IN [address] Nya BOLIVAR IN ONE WEEK. SON VERBALIZED UNDERSTANDING. PT DISCHARGED IN STABLE CONDITION.
== END 2017-10-26 18:04 | disposition home or self-care (01) | DRG 673 ==
LOC: MED 14:44 → EDSEX 14:44 → MTU 18:25
PROVIDERS: ADMIT Preventive Medicine Preventive Medicine/Occupational Environmental Medicine; ATTEND Preventive Medicine Preventive Medicine/Occupational Environmental Medicine
PROC: 30233P1 Transfusion of Nonautologous Frozen Red Cells into Peripheral Vein, Percutaneous Approach (ICD-10-PCS; principal; 2017-10-14)
PROC: 02HV33Z Insertion of Infusion Device into Superior Vena Cava, Percutaneous Approach (ICD-10-PCS; 2017-10-14)
PROC: 5A1D70Z Performance of Urinary Filtration, Intermittent, Less than 6 Hours Per Day (ICD-10-PCS; 2017-10-14)
PROC: 5A1D70Z Performance of Urinary Filtration, Intermittent, Less than 6 Hours Per Day (ICD-10-PCS; 2017-10-14)
PROC: 0DB68ZX Excision of Stomach, Via Natural or Artificial Opening Endoscopic, Diagnostic (ICD-10-PCS; 2017-10-17)
PROC: 0JH63XZ Insertion of Tunneled Vascular Access Device into Chest Subcutaneous Tissue and Fascia, Percutaneous Approach (ICD-10-PCS; 2017-10-22)
PROC: 05HM33Z Insertion of Infusion Device into Right Internal Jugular Vein, Percutaneous Approach (ICD-10-PCS; 2017-10-22)
PROC: B513ZZA Fluoroscopy of Right Jugular Veins, Guidance (ICD-10-PCS; 2017-10-22)
PROC: B543ZZA Ultrasonography of Right Jugular Veins, Guidance (ICD-10-PCS; 2017-10-22)
DX: N17.0 Acute kidney failure with tubular necrosis (principal); J18.9 Pneumonia, unspecified organism; J96.01 Acute respiratory failure with hypoxia; E43 Unspecified severe protein-calorie malnutrition; I13.2 Hypertensive heart and chronic kidney disease with heart failure and with stage 5 chronic kidney disease, or end stage renal disease; D61.818 Other pancytopenia; E11.22 Type 2 diabetes mellitus with diabetic chronic kidney disease; E88.09 Other disorders of plasma-protein metabolism, not elsewhere classified; E87.1 Hypo-osmolality and hyponatremia; I42.9 Cardiomyopathy, unspecified; I49.5 Sick sinus syndrome; N18.6 End stage renal disease; E83.39 Other disorders of phosphorus metabolism; E83.42 Hypomagnesemia; D63.8 Anemia in other chronic diseases classified elsewhere; D64.9 Anemia, unspecified; E86.0 Dehydration; E03.9 Hypothyroidism, unspecified; Z95.0 Presence of cardiac pacemaker; I25.10 Atherosclerotic heart disease of native coronary artery without angina pectoris; Z88.0 Allergy status to penicillin; N18.9 Chronic kidney disease, unspecified; K29.80 Duodenitis without bleeding; I48.2 Chronic atrial fibrillation; I50.9 Heart failure, unspecified; K29.70 Gastritis, unspecified, without bleeding; K52.9 Noninfective gastroenteritis and colitis, unspecified; K59.00 Constipation, unspecified; M10.9 Gout, unspecified; N40.0 Benign prostatic hyperplasia without lower urinary tract symptoms; Z87.891 Personal history of nicotine dependence; Z22.322 Carrier or suspected carrier of Methicillin resistant Staphylococcus aureus
CPT/HCPCS: 36415; 71045; 76770; 80048; 80053; 80202; 81001; 82150; 82272; 82550; 82553; 82728; 82948; 83540; 83605; 83690; 83735; 84100; 84154; 84484; 85025; 85610; 85651; 86140; 86677; 86704; 86706; 86708; 86709; 86803; 86886; 86900; 86901; 86920; 87040; 87070; 87081; 87205; 87340; 93005; 94640; 96374; 97110; 97116; 97140; 97530; 99285; C1750; C9113; J1200; J1644; J1815; J1940; J1956; J2001; J2250; J2405; J3010; J3370; J3475; J3490; J7030; J7042; J7620; P9016; Q0092